=== PATIENT | female | born 1945 | race Caucasian/White ===

== ENCOUNTER → 2023-09-20 | Day surgery (SDC) | payer MEDICARE ==
[~2023-09-20] MED LIST: LIDOCAINE 1% (10MG/ML) FOR IV START INTRADERMA PRN; PROPOFOL 10 MG/ML 20 ML VIAL IV ONE
[2023-09-20] MEDS: LACTATED RINGERS 1,000 ML IV SCH (09:34)
[2023-09-20 09:40] VITALS: TEMP 98.3
--- NOTE | 2023-09-20 10:31 | P.PCN ---
Date of Procedure: 09/20/23 Procedure(s) Performed: BRIEF HISTORY: Patient is a 78-year-old pleasant white female scheduled for an elective colonoscopy as a part of screening for colon cancer. PROCEDURE PERFORMED: Colonoscopy with snare polypectomy. PREOPERATIVE DIAGNOSIS: Screening for colon cancer. IV sedation per Anesthesia. PROCEDURE: After informed consent was obtained, the patient, was brought into the endoscopy unit. IV sedation was administered by Anesthesia under continuous monitoring. Digital rectal examination was normal. Initially the Olympus CF-160 flexible video colonoscope was then inserted in the rectum, gradually advanced into the cecum without any difficulty. Careful examination was performed as the scope was gradually being withdrawn. Ileocecal valve and the appendiceal orifice were visualized and appeared normal. Prep was excellent. Mucosa of the cecum, ascending colon, had melanosis coli noted. In the transverse colon there was a 6 mm polyp that was removed by cold snare polypectomy. Rest of the transverse colon, descending colon, sigmoid colon, and rectum appeared normal. Retroflexion was performed in the rectum and no lesions were seen. The patient tolerated the procedure well. IMPRESSION: 6 mm transverse colon polyp status post cold snare polypectomy Diffuse melanosis coli RECOMMENDATIONS: Findings of this examination were discussed with the patient as well as his family. He was advised to follow-up with the biopsy results. If the biopsy was adenomatous he can have a repeat colonoscopy in 5 years..
[2023-09-20 11:13] VITALS: BP 160/79; PULSE 68; RESP 12
== END ==
LOC: ORWHC2ENDO 09:11
PROVIDERS: ATTEND Internal Medicine Gastroenterology
DX: Z12.11 Encounter for screening for malignant neoplasm of colon (principal); D12.3 Benign neoplasm of transverse colon; I10 Essential (primary) hypertension; E78.5 Hyperlipidemia, unspecified; E03.9 Hypothyroidism, unspecified; Z86.73 Personal history of transient ischemic attack (TIA), and cerebral infarction without residual deficits; Z79.890 Hormone replacement therapy; Z79.899 Other long term (current) drug therapy; Z88.2 Allergy status to sulfonamides
CPT/HCPCS: 88305; 45385; J2704

== ENCOUNTER 2024-09-08 18:55 | Inpatient (IN) | payer MEDICARE ==
--- NOTE | 2024-09-08 19:30 | CT ---
EXAMINATION TYPE: CODE STROKE: CT brain wo contr DATE OF EXAM: 09/08/2024 7:21 PM COMPARISON: None. CLINICAL INDICATION: Female, 79 years old with history of Neuro deficit, acute, stroke suspected, Cod e thrombolytic. LKW 1815. Family called after she started having L sided weakness. Hx of previous CVA , no deficits. TECHNIQUE: Brain: Axial CT images of the brain were obtained with coronal and sagittal reformats created and rev iewed. Contrast used: None. Oral contrast used: None. CT DLP: 1043.6 mGycm, Automated exposure control for dose reduction was used. FINDINGS: Brain: Extra-axial spaces: No abnormal extra-axial fluid collections. Ventricular system: Dilatation in proportion to cerebral atrophy. Cerebral parenchyma: No acute intraparenchymal hemorrhage or mass effect. Calcified extra-axial mass in the right parietal lobe measuring 1.6 x 1.6 x 1.8 cm, thought to most likely reflect a calcified meningioma. Scattered hypoattenuating areas are seen within the white matter. Cerebellum: Unremarkable. Mass effect: No evidence of midline shift. Intracranial vasculature: Atherosclerotic calcifications of the intracranial vessels. Soft tissues: Normal. Calvarium/osseous structures: No depressed skull fracture. Paranasal sinuses and mastoid air cells: Mild scattered paranasal sinus disease. Visualized orbits: Orbital contents are intact. IMPRESSION: 1. No acute intracranial hemorrhage. No evidence of acute mass effect or midline shift. 2. Calcified extra-axial mass in the region of the right parietal lobe measuring 1.8 cm felt to most likely reflect a meningioma. Consider correlation with any prior outside imaging if available. 3. Patchy periventricular and subcortical white matter hypoattenuation likely reflecting chronic penny rovascular ischemic disease. [facility], , 09/08/2024 7:27 PM
[2024-09-08] MEDS: T.ENECTEPLASE 5 MG/ML VIAL IVP STA (19:45)
--- NOTE | 2024-09-08 19:49 | CT ---
EXAMINATION TYPE: CT angio head neck DATE OF EXAM: 09/08/2024 7:34 PM COMPARISON: None. CLINICAL INDICATION: Female, 79 years old with history of Neuro deficit, acute, stroke suspected; PHH , Code thrombolytic. LKW 1815. Family called after she started having L sided weakness. Hx of previou s CVA, no deficits. TECHNIQUE: Axially acquired helical CT angiogram of the head and neck was obtained with contrast. Axi al images are supplemented with 3D reconstructions and MIP images which were post-processed at an in dependent workstation. NASCET criteria used. Contrast used:65 ml mL of Isovue 370 with IV Contrast, Oral contrast used: None. CT DLP: 387.5 mGycm, Automated exposure control for dose reduction was used. FINDINGS: CTA HEAD: No evidence of acute intracranial hemorrhage, mass effect, or midline shift. The ventricles, sulci, a nd cisterns are unremarkable. Vertebral arteries: The vertebral arteries are patent. Vertebral artery dominance: Left Basilar artery: The basilar artery is intact. The basilar artery bifurcation is remarkable. Internal Carotid arteries: The cervical, petrous, cavernous and supraclinoid segments are without edilia w-limiting stenosis. MELVIN: Patent with no evidence of aneurysm. ACOM: Present without evidence of aneurysm. MCA: Patent with no evidence of aneurysm. BACON SKIN LIFTER: Patent with no evidence of aneurysm. PCOM: Hypoplastic bilaterally. Dural sinuses: Patent. CTA NECK: Right Carotid System: The common carotid and external carotid arteries are patent. There is less than 50% stenosis at the c arotid bifurcation secondary to calcified/noncalcified plaque. The rest of the internal carotid arter y is patent. Left Carotid System: The common carotid and external carotid arteries are patent. There is less than 50% stenosis at the c arotid bifurcation secondary to calcified/noncalcified plaque. The rest of the internal carotid arter y is patent. Vertebral arteries are patent without evidence hemodynamically significant stenosis. Limited evaluation of the aortic arch and proximal main thoracic aortic arch branches due to severe s treak artifact from adjacent contrast within the left brachiocephalic vein. Visualized portions appea r grossly patent without flow-limiting stenosis. 3 vessel thoracic aortic arch. Upper thorax: Loculated fluid along the partially visualized right fissure and partially visualized p atchy right lower lobe opacities which could reflect atelectasis and/or pneumonia. IMPRESSION: 1. No evidence of acute dissection or flow limiting stenosis of the cervical internal carotid arteri es and cervical vertebral arteries. 2. No evidence of intracranial high-grade stenosis, occlusion or intracranial aneurysm. [facility], , 09/08/2024 7:46 PM
[2024-09-08] MEDS: PANTOPRAZOLE 40 MG/10 ML VIAL IVP STA (19:51)
--- NOTE | 2024-09-08 20:24 | XR ---
EXAMINATION TYPE: XR chest 2V DATE OF EXAM: 09/08/2024 8:19 PM COMPARISON: Same day CT study. CLINICAL INDICATION: Female, 79 years old with history of altered mental status; [facility] TECHNIQUE: XR chest 2V Frontal and lateral views of the chest. FINDINGS: Cardiac silhouette is within normal limits for size. Subtle nodular opacities in the right middle and right lower lobes, best appreciated on lateral view suspicious for pneumonia. No sizable pleural effusion. No pneumothorax. No acute osseous abnormality. IMPRESSION: Right lower lobe/retrocardiac opacity suspicious for atelectasis and/or pneumonia. [facility], , 09/08/2024 8:22 PM
--- NOTE | 2024-09-08 21:12 | ED ---
Neuro HPI - General Chief Complaint: Neuro Symptoms/Deficit Stated Complaint: CVA Time Seen by Provider: 09/08/24 19:00 Source: patient, EMS Mode of arrival: EMS Limitations: no limitations - History of Present Illness Is the patient presenting with stroke symptoms?: Yes Initial Comments: 79-year-old female with past medical history of CVA who presents to the emergency department reporting strokelike symptoms. Patient states around 615 she went to use the restroom. After she used the restroom she noted that she h ad significant weakness in her left arm. Her left leg is in a knee immobilizer but did feel as if there was some weakness to that left leg which was worsened. She also had left-sided facial droop and slurred speech. No headache. Admits to mild blurred vision. States that she had no previous deficits from her old stroke. She denies any nausea or vomiting. No head injuries. Patient does not take any blood thinners. No other alleviating, precipitating or modifying factors - Related Data Home Medications: Home Medications Medication Instructions Recorded Confirmed Enalapril [Vasotec] 10 mg PO DAILY 09/19/23 09/08/24 Levothyroxine Sodium [Levoxyl] 100 mcg PO DAILY 09/19/23 09/08/24 Multivitamin [Multivitamins Adult 1 tab PO DAILY 09/19/23 09/08/24 Gummies] Rosuvastatin Calcium 40 mg PO HS 09/19/23 09/08/24 Solifenacin Succinate 5 mg PO DAILY 09/19/23 09/08/24 Acetaminophen Tab [Tylenol] 500 mg PO Q6HR PRN 09/08/24 09/08/24 Alendronate Sodium [Fosamax] 70 mg PO SUMMERS 09/08/24 09/08/24 HYDROcodone/APAP 5-325MG [Owanka 1 tab PO Q4-6H PRN 09/08/24 09/08/24 5-325] Previous Rx's Medication Instructions Recorded Aspirin 81 mg PO DAILY tab 09/11/24 Rivaroxaban [Xarelto] 20 mg PO DAILY@1800 #30 tab 09/11/24 Allergies/Adverse Reactions: Allergies Allergy/AdvReac Type Severity Reaction Status Date / Time Sulfa (Sulfonamide Allergy Rash/Hives Verified 09/08/24 21:01 Antibiotics) Review of Systems ROS Statement: Those systems with pertinent positive or pertinent negative responses have been documented in the HPI. ROS Other: All systems not noted in ROS Statement are negative. General Exam Limitations: no limitations General appearance: alert, in no apparent distress Head exam: Present: atraumatic, normocephalic, normal inspection Eye exam: Present: normal appearance, PERRL, EOMI. Absent: scleral icterus, conjunctival injection, periorbital swelling ENT exam: Present: mucous membranes moist, other (Patient has notable droop on the left lower face) Neck exam: Present: normal inspection. Absent: tenderness, meningismus, lymphadenopathy Respiratory exam: Present: normal lung sounds bilaterally. Absent: respiratory distress, wheezes, rales, rhonchi, stridor Cardiovascular Exam: Present: regular rate, normal rhythm, normal heart sounds. Absent: systolic murmur, diastolic murmur, rubs, gallop, clicks GI/Abdominal exam: Present: soft, normal bowel sounds. Absent: distended, tenderness, guarding, rebound, rigid Extremities exam: Present: full ROM, normal capillary refill, other (Slight decrease in junior network administrator strength on the left arm). Absent: tenderness, pedal edema, joint swelling, calf tenderness Back exam: Present: normal inspection Neurological exam: Present: alert, oriented X3, CN II-XII intact Psychiatric exam: Present: normal affect, normal mood Skin exam: Present: warm, dry, intact, normal color. Absent: rash Stroke [facility] - Lab Data Result diagrams: 09/10/24 03:53 09/10/24 03:53 Lab Results 09/08/24 09/08/24 09/08/24 Range/Units 19:11 19:11 19:11 WBC 9.63 (4.50-10.00) 10*3/uL RBC 4.54 (4.10-5.20) 10*6/uL Hgb 13.5 (12.0-15.0) g/dL Hct 40.3 (37.2-46.3) % MCV 88.8 (80.0-97.0) fL MCH 29.7 (27.0-32.0) pg MCHC 33.5 (32.0-37.0) g/dL Plt Count 178 (140-440) 10*3/uL MPV 13.8 H (9.5-12.2) fL Immature Gran % (Auto) 0.3 % Neutrophils % 82.2 % Lymphocytes % 8.9 % Monocytes % 8.2 % Eosinophils % 0.1 % Basophils % 0.3 % Immature Gran # 0.03 (0.00-0.04) 10*3/uL Neutrophils # 7.91 H (1.80-7.70) 10*3/uL Lymphocytes # 0.86 L (0.90-5.00) 10*3/uL Monocytes # 0.79 (0.20-1.00) 10*3/uL Eosinophils # 0.01 L (0.04-0.35) 10*3/uL Basophils # 0.03 (0.00-0.10) 10*3/uL Immature Plt Fraction 10.8 H (1.1-6.1) % PT 10.9 (10.0-12.5) sec INR 1.0 (<1.2) APTT 22.1 (22.0-30.0) sec Sodium 137 (137-145) mmol/L Potassium 4.3 (3.5-5.1) mmol/L Chloride 106 (98-107) mmol/L Carbon Dioxide 21 L (22-30) mmol/L Anion Gap 10 mmol/L BUN 16 (7-17) mg/dL Creatinine 0.65 (0.52-1.04) mg/dL Est GFR (CKD-EPI)AfAm >90 (>60 ml/min/1.73 sqM) Est GFR (CKD-EPI)NonAf 86 (>60 ml/min/1.73 sqM) Glucose 115 H (74-99) mg/dL Calcium 9.2 (8.4-10.2) mg/dL Total Bilirubin 0.7 (0.2-1.3) mg/dL AST 31 (14-36) U/L ALT 31 (4-34) U/L Alkaline Phosphatase 145 H (38-126) U/L Creatine Kinase 121 (30-135) U/L Troponin I (0.000-0.034) ng/mL Total Protein 6.6 (6.3-8.2) g/dL Albumin 3.9 (3.5-5.0) g/dL 09/08/24 Range/Units 19:11 WBC (4.50-10.00) 10*3/uL RBC (4.10-5.20) 10*6/uL Hgb (12.0-15.0) g/dL Hct (37.2-46.3) % MCV (80.0-97.0) fL MCH (27.0-32.0) pg MCHC (32.0-37.0) g/dL Plt Count (140-440) 10*3/uL MPV (9.5-12.2) fL Immature Gran % (Auto) % Neutrophils % % Lymphocytes % % Monocytes % % Eosinophils % % Basophils % % Immature Gran # (0.00-0.04) 10*3/uL Neutrophils # (1.80-7.70) 10*3/uL Lymphocytes # (0.90-5.00) 10*3/uL Monocytes # (0.20-1.00) 10*3/uL Eosinophils # (0.04-0.35) 10*3/uL Basophils # (0.00-0.10) 10*3/uL Immature Plt Fraction (1.1-6.1) % PT (10.0-12.5) sec INR (<1.2) APTT (22.0-30.0) sec Sodium (137-145) mmol/L Potassium (3.5-5.1) mmol/L Chloride (98-107) mmol/L Carbon Dioxide (22-30) mmol/L Anion Gap mmol/L BUN (7-17) mg/dL Creatinine (0.52-1.04) mg/dL Est GFR (CKD-EPI)AfAm (>60 ml/min/1.73 sqM) Est GFR (CKD-EPI)NonAf (>60 ml/min/1.73 sqM) Glucose (74-99) mg/dL Calcium (8.4-10.2) mg/dL Total Bilirubin (0.2-1.3) mg/dL AST (14-36) U/L ALT (4-34) U/L Alkaline Phosphatase (38-126) U/L Creatine Kinase (30-135) U/L Troponin I <0.012 (0.000-0.034) ng/mL Total Protein (6.3-8.2) g/dL Albumin (3.5-5.0) g/dL - Medical Decision Making Was pt. sent in by a medical professional or institution (TORY Baltazar, SENIOR DRUPAL DEVELOPER, urgent care, hospital, or snf...) When possible be specific @ -No Did you speak to anyone other than the patient for history (EMS, parent, family, police, friend...)? What history was obtained from this source @ -Spoke with and EMS for history Did you review nursing and triage notes (agree or disagree)? Why? @ -I reviewed and agree with nursing and triage notes Were old charts reviewed (outside hosp., previous admission, EMS record, old EKG, old radiological studies, urgent care reports/EKG's, snf records)? Report findings @ -No old charts were reviewed Differential Diagnosis (chest pain, altered mental status, abdominal pain women, abdominal pain men, vaginal bleeding, weakness, fever, dyspnea, syncope, headache, dizziness, GI bleed, back pain, seizure, CVA, palpatations, mental h ealth, musculoskeletal)? @ -Differential CVA Ischemic stroke, hemorrhagic stroke, brain tumor, atypical migraine, Wernicke's encephalopathy, seizure, multiple sclerosis, meningitis, encephalitis, hy poglycemia, Guillain-Jiménez, electrolytes disturbance, myasthenia gravis.... This is not meant to be an all-inclusive list EKG interpreted by me (3pts min.). @ -Yes and demonstrates sinus rhythm with a rate of 85. [place] interval 154. QRS 85. QTc of 335. No acute ST segment elevations or depressions X-rays interpreted by me (1pt min.). @ -Yes which demonstrates no acute process CT interpreted by me (1pt min.). @ -Yes and demonstrates no acute process U/S interpreted by me (1pt. min.). @ -None done What testing was considered but not performed or refused? (CT, X-rays, U/S, labs)? Why? @ -None What meds were considered but not given or refused? Why? @ -None Did you discuss the management of the patient with other professionals (professionals i.e. TORY Baltazar, SENIOR DRUPAL DEVELOPER, lab, RT, psych nurse, social media specialist, sizing end bander, teacher, sanitation officer, case liner)? Give summary @ -Spoke with Dr. tillman who recommended TNK Was smoking cessation discussed for >3mins.? @ -No Was critical care preformed (if so, how long)? @ -40 minutes for code stroke activation and administration of TNK Were there social determinants of health that impacted care today? How? (Homelessness, low income, unemployed, alcoholism, drug addiction, transportation, low edu. Level, literacy, decrease access to med. care, long term, rehab)? @ -No Was there de-escalation of care discussed even if they declined (Discuss DNR or withdrawal of care, Hospice)? DNR status @ -No What co-morbidities impacted this encounter? (DM, HTN, Smoking, COPD, CAD, Cancer, CVA, ARF, Chemo, Hep., AIDS, mental health diagnosis, sleep apnea, mor bid obesity)? @ -History of previous CVA Was patient admitted / discharged? Hospital course, mention meds given and route, prescriptions, significant lab abnormalities, going to OR and other pertinent info. @ -Upon arrival patient seen and evaluated in room 1. Thorough history and physical exam was performed. Patient does have symptoms consistent with acute stroke and therefore I did activate a code thrombolytics. Laboratory studies are conducted. Patient does go for CT. I spoke with Dr. Tillman at 192 who recommends that the patient get TNKase for her NIH of 4. I did discuss this w ith the patient. She was agreeable to receiving this medication should her CAT scan come back negative. I did receive the CAT scan read which came back at 1926 and demonstrated no acute intracranial process and therefore the TNK was ordered at 1927. Upon attempting to administer this to the patient she does retract her consent. She states that she would like me to talk to her family about the risks and benefits of this medication. We do await family who do come back from the waiting room. I discussed TNK with them and it was a unanimous agreement between the patient, her , her son and [id number] to receive the TNK. Patient does consent once again to receiving the medication at 1940 and therefore it was administered shortly after. Patient will go to the ICU. She is admitted to Dr. Smith. Dr. Resendiz is made aware does accept the patient into the ICU Undiagnosed new problem with uncertain prognosis? @ -No Drug Therapy requiring intensive monitoring for toxicity (Heparin, Nitro, Insulin, Cardizem)? @ -No Were any procedures done? @ -No Diagnosis/symptom? @ -Acute left facial droop, acute left upper and lower extremity weakness, suspected CVA status post TNKase Acute, or Chronic, or Acute on Chronic? @ -Acute Uncomplicated (without systemic symptoms) or Complicated (systemic symptoms)? @ -Complicated Side effects of treatment? @ -Bleeding including intracranially Exacerbation, Progression, or Severe Exacerbation? @ -No Poses a threat to life or bodily function? How? (Chest pain, USA, CA, pneumonia, PE, COPD, DKA, ARF, appy, cholecystitis, CVA, Diverticulitis, Homicidal, Suicidal, threat to staff... and all critical care pts) @ -Yes if patient does demonstrate signs of a stroke Past Medical History Past Medical History: GERD/Reflux, Hyperlipidemia, Hypertension, Osteoarthritis (OA) Additional Past Medical History / Comment(s): + cologuard. Back pain with 2 slipped discs History of Any Multi-Drug Resistant Organisms: None Reported Past Surgical History: Appendectomy, Breast Surgery, Orthopedic Surgery Additional Past Surgical History / Comment(s): L foot surgery for hammertoe, R foot bursa surgery, D&C, breast biopsies. Past Anesthesia/Blood Transfusion Reactions: No Reported Reaction Past Psychological History: No Psychological Hx Reported Smoking Status: Former smoker - Past Family History Mother Family Medical History: No Reported History Additional Family Medical History / Comment(s): Lived to be 93yrs old. Father Family Medical History: Cancer Additional Family Medical History / Comment(s): Pancreatic cancer. Course Vital Signs 09/08/24 09/08/24 09/08/24 18:57 19:01 23:00 Temperature 98.1 F 98.8 F Pulse Rate 86 84 82 Respiratory 20 18 18 Rate Blood Pressure 163/72 159/75 139/87 O2 Sat by Pulse 93 L 95 Oximetry Disposition Clinical Impression: Cerebrovascular accident (CVA) Disposition: ADMITTED IP TO THIS HOSP Is patient prescribed a controlled substance at d/c from ED?: No Time of Disposition: 21:30 Decision to Admit Reason: Admit from EC Decision Date: 09/08/24 Decision Time: 21:30
[2024-09-08 21:16] LABS: Basophils # (A) 0.03 10*3/uL (0.00-0.10); Basophils % (A) 0.3 %; Eosinophils # (A) 0.01 10*3/uL (0.04-0.35); Eosinophils % (A) 0.1 %; HCT 40.3 % (37.2-46.3); HGB 13.5 g/dL (12.0-15.0); Immature Platelet Fraction 10.8 % (1.1-6.1); Lymphocytes # (A) 0.86 10*3/uL (0.90-5.00); Lymphocytes % (A) 8.9 %; MCH 29.7 pg (27.0-32.0); MCHC 33.5 g/dL (32.0-37.0); MCV 88.8 fL (80.0-97.0); Mean Platelet Volume 13.8 fL (9.5-12.2); Monocytes # (A) 0.79 10*3/uL (0.20-1.00); Monocytes % (A) 8.2 %; Neutrophils # (A) 7.91 10*3/uL (1.80-7.70); Neutrophils % (A) 82.2 %; Platelet Count 178 10*3/uL (140-440); RBC 4.54 10*6/uL (4.10-5.20); WBC 9.63 10*3/uL (4.50-10.00)
[2024-09-08 21:29] LABS: ALT 31 U/L (4-34); AST 31 U/L (14-36); African American GFR (CKD) >90 (>60 ml/min/1.73 sqM); Albumin 3.9 g/dL (3.5-5.0); Alkaline Phosphatase 145 U/L (38-126); Anion Gap 10 mmol/L; Blood Urea Nitrogen 16 mg/dL (7-17); Calcium 9.2 mg/dL (8.4-10.2); Carbon Dioxide 21 mmol/L (22-30); Chloride 106 mmol/L (98-107); Creatine Kinase 121 U/L (30-135); Glucose 115 mg/dL (74-99); Non-African American GFR(CKD) 86 (>60 ml/min/1.73 sqM); Partial Thromboplastin Time 22.1 sec (22.0-30.0); Potassium 4.3 mmol/L (3.5-5.1); Prothrombin Time 10.9 sec (10.0-12.5); Sodium 137 mmol/L (137-145); Total Bilirubin 0.7 mg/dL (0.2-1.3); Total Protein 6.6 g/dL (6.3-8.2)
[2024-09-08] MEDS ORDERED: NALOXONE 0.4 MG/ML 1 ML VIAL IV PRN (21:30)
[2024-09-08 23:31] LABS: Glucose,Whole Blood 113 mg/dL (70-110)
[2024-09-09] MEDS: HYDROcodone/APAP 5-325MG 1 EACH TAB PO PRN (00:17)
--- NOTE | 2024-09-09 01:33 | P.CNPUL ---
History of Present Illness Consult date: 09/09/24 Requesting physician: Ashlyn Cook Reason for consult: other (CVA status post TNK, ICU management) Chief complaint: Left-sided hemiparesis, dysarthria History of present illness: Patient is a 79-year-old female with past medical history significant for previous CVA/TIA, hypertension, hyperlipidemia, recent mechanical fall resulting in left tibial fracture. Brought into the emergency department by EMS with strokelike symptoms last night. Last known well 1814. She was up using the restroom and noted significant left upper and lower extremity weakness. Associated dysarthria. Her immediately called EMS. Code stroke was initiated. NIH was scored at [address] without contrast did not show any acute intracranial hemorrhage or mass effect. There was a calcified extra-axial mass in the region of the right parietal lobe measuring 1.8 cm, felt to most likely representing meningioma. Patchy periventricular and subcortical white matter hypoattenuation likely reflecting chronic microvascular ischemic disease. Brain CT angiogram of the head and neck did not show any evidence of dissection or cervical internal carotid artery stenosis or vertebral artery stenosis. No evidence of high-grade intracranial stenosis, occlusion, or aneurysm. A decision was made between the ER provider and on-call neuro interventionalist to administer tenecteplase. This was given at 1945. Patient is currently being evaluated in the intensive care unit following TNK administr ation. She is awake and alert. Previous deficits have resolved. States she has history of CVA/TIA approximately 25 years ago. She was told she had a blood clot in her heart. Not currently on any anticoagulation. She does take a daily aspirin. Currently, denies any headaches, vision changes. No notable dysphasia or dysarthria. Previous left-sided weakness has resolved, she does have a left lower extremity soft leg brace. Reportedly sustained a left tibial fracture following a mechanical fall approximately 2 weeks ago. Continues to have some left lower extremity pain. Gait assessment was deferred. No ataxia. Denies any head trauma. Denies any chest pain, heart palpitations, syncopal events. CBC: WBC count 9.6, hemoglobin 13.5, platelets 178. Coagulation profile including PT of 10.9, INR 1, APTT 22. CMP with a sodium of 137, potassium 4.3, chloride 106, serum bicarb 21, BUN 16, creatinine 0.65, glucose 115. LFTs not elevated. Troponin less than 0.012. Previous EKG: Sinus rhythm, rate 85 bpm, with nonspecific ST and T wave segment abnormalities. Current most recent vital signs: Temperature 98.9 F, heart rate 78 bpm, blood pressure 145/62 mmHg, nontachypneic, SPO2 recorded at 95% on room air. Review of Systems Constitutional: Denies chills, Denies fatigue, Denies fever, Denies poor appetite, Denies sweats, Denies weight gain, Denies weight loss Ears, nose, mouth and throat: Denies epistaxis, Denies headache, Denies nasal congestion, Denies nasal discharge, Denies post-nasal drip, Denies sinus pain, Denies sinus pressure, Denies sore throat Cardiovascular: Denies chest pain, Denies leg edema, Denies lightheadedness, Denies orthopnea, Denies palpitations, Denies paroxysmal nocturnal dyspnea, Denies shortness of breath, Denies syncope Respiratory: Denies congestion, Denies cough, Denies cough with sputum, Denies dyspnea Gastrointestinal: Denies abdominal pain, Denies constipation, Denies diarrhea, Denies nausea, Denies vomiting Genitourinary: Denies dysuria, Denies hematuria Musculoskeletal: Reports limitation of motion (Immobilizing brace on the left lower extremity) Integumentary: Denies rash, Denies unusual bruising Neurological: Reports change in speech (Resolved), Reports weakness (Previous left-sided hemiparesis has resolved), Denies ataxia, Denies change in mentation, Denies head injury, Denies headaches, Denies numbness, Denies paresthesias, Denies seizures, Denies syncope, Denies tremors, Denies visual changes Psychiatric: Denies anxiety, Denies depression Past Medical History Past Medical History: GERD/Reflux, Hyperlipidemia, Hypertension, Osteoarthritis (OA) Additional Past Medical History / Comment(s): + cologuard. Back pain with 2 slipped discs History of Any Multi-Drug Resistant Organisms: None Reported Past Surgical History: Appendectomy, Breast Surgery, Orthopedic Surgery Additional Past Surgical History / Comment(s): L foot surgery for hammertoe, R foot bursa surgery, D&C, breast biopsies. Past Anesthesia/Blood Transfusion Reactions: No Reported Reaction Past Psychological History: No Psychological Hx Reported Additional Psychological History / Comment(s): Resides with spouse. Uses cane. Smoking Status: Former smoker Past Alcohol Use History: None Reported Additional Past Alcohol Use History / Comment(s): Pt quit smoking 25 yrs ago. Past Drug Use History: None Reported - Past Family History Mother Family Medical History: No Reported History Additional Family Medical History / Comment(s): Lived to be 93yrs old. Father Family Medical History: Cancer Additional Family Medical History / Comment(s): Pancreatic cancer. Medications and Allergies Home Medications Medication Instructions Recorded Confirmed Type Enalapril [Vasotec] 10 mg PO DAILY 09/19/23 09/08/24 History Levothyroxine Sodium [Levoxyl] 100 mcg PO DAILY 09/19/23 09/08/24 History Multivitamin [Multivitamins Adult 1 tab PO DAILY 09/19/23 09/08/24 History Gummies] Rosuvastatin Calcium 40 mg PO HS 09/19/23 09/08/24 History Solifenacin Succinate 5 mg PO DAILY 09/19/23 09/08/24 History Acetaminophen Tab [Tylenol Tab] 500 mg PO Q6HR PRN 09/08/24 09/08/24 History Alendronate Sodium [Fosamax] 70 mg PO SUMMERS 09/08/24 09/08/24 History Aspirin EC [Ecotrin] 325 mg PO QID PRN 09/08/24 09/08/24 History HYDROcodone/APAP 5-325MG [[place] 1 tab PO Q4-6H PRN 09/08/24 09/08/24 History 5-325] Allergies Allergy/AdvReac Type Severity Reaction Status Date / Time Sulfa (Sulfonamide Allergy Rash/Hives Verified 09/08/24 21:01 Antibiotics) Physical Exam Vitals: Vital Signs Temp Pulse Resp BP Pulse Ox 09/09/24 00:00 98.9 F 92 13 120/68 93 L 09/08/24 23:30 14 09/08/24 23:00 98.8 F 82 18 139/87 95 09/08/24 19:01 84 18 159/75 09/08/24 18:57 98.1 F 86 20 163/72 93 L Intake and Output 09/08/24 09/08/24 09/09/24 14:59 22:59 06:59 Output Total 0 Balance 0 Output: Urine 0 Other: # Voids 0 Weight 63.503 kg GENERAL EXAM: Alert, 79-year-old female, comfortable in no apparent distress. HEAD: Normocephalic and atraumatic EYES: Normal reaction of pupils, equal size. No nystagmus. Nonicteric sclera. NOSE: Clear with pink turbinates. THROAT: No erythema or exudates. NECK: No masses, no JVD. CHEST: No chest wall deformity. LUNGS: Equal air entry with no crackles, wheeze, rhonchi or dullness. On room air. No conversational dyspnea or accessory muscle use.. CVS: S1 and S2 normal with no audible murmur, regular rhythm. No extra heart sounds ABDOMEN: No hepatosplenomegaly, active bowel sounds, no guarding or rigidity. SPINE: No scoliosis or deformity SKIN: No rashes CENTRAL NERVOUS SYSTEM: Alert, fully oriented, cranial nerves II through XII intact. No unilateral extremity weakness. Left lower extremity immobilizing brace in place, gait assessment deferred. No limb ataxia noted. EXTREMITIES: There is no peripheral edema, clubbing, or cyanosis. Peripheral pulses are intact. Results - Laboratory Findings CBC and BMP: 09/08/24 19:11 09/08/24 19:11 PT/INR, D-dimer PT 10.9 sec (10.0-12.5) 09/08/24 19:11 INR 1.0 (<1.2) 09/08/24 19:11 Abnormal lab findings: Abnormal Labs 09/08/24 09/08/24 09/08/24 19:11 19:11 23:29 MPV 13.8 H Neutrophils # 7.91 H Lymphocytes # 0.86 L Eosinophils # 0.01 L Immature Plt Fraction 10.8 H Carbon Dioxide 21 L Glucose 115 H POC Glucose (mg/dL) 113 H Alkaline Phosphatase 145 H - Diagnostic Findings Chest x-ray: image reviewed Assessment and Plan Assessment: Acute ischemic CVA, status post TNK, with resolution of previously noted deficit s Left-sided hemiparesis, resolved Dysarthria, resolved Previous history of CVA/TIA Hypertension History of hyperlipidemia History of hypothyroidism History of mechanical fall and tibial fracture Plan: Patient currently being monitored in the intensive care unit following TNK administration at 1945. Initial brain CT without contrast remarkable for calcified extra-axial mass in the region of the right parietal lobe measuring 1.8 cm, felt to most likely representing meningioma. Consider follow-up brain MRI Follow-up 24-hour brain CT ordered Transthoracic echocardiogram ordered Continue neurochecks per protocol Continue high intensity statin Allow for permissive hypertension Monitor for bleeding Swallow screen Consult PT/OT Neurology is consulted Patient will be monitored in the intensive care unit at least 24 hours following TNK administration I have personally seen and examined the patient, performed the documentation and the assessment and plan as written. Number of minutes spent on the visit:20 This dictation was produced using [employer] dictation software please excuse gr ammatical errors Time with Patient: Greater than 30
[2024-09-09] MEDS: LEVOTHYROXINE 100 MCG TAB PO SCH (05:48)
[2024-09-09 08:35] LABS: Chol/HDL Ratio 3.12 Ratio; LDL Cholesterol,Calculated 65.5 mg/dL (0.0-131.0)
[2024-09-09] MEDS: ACETAMINOPHEN TAB 500 MG TAB PO PRN (11:10)
--- NOTE | 2024-09-09 11:48 | CA ---
Transthoracic Echo Report Name: Neela Matthews Age: 79 Gender: F : 1945 Exam Date: 09/09/2024 08:49 Exam Location: [facility] Echo Ht (in): 63 Wt (lb): 140 Ordering Physician: Evan Murdock Attending/Referring Phys: [employer] Operator Manuel Davis RDCS Procedure CPT: Indications: Ischemic CVA Cardiac Hx: Technical Quality: Good Contrast 1: Total Dose (mL): Contrast 2: Total Dose (mL): MEASUREMENTS (Male / Female) Normal Values 2D ECHO LV Diastolic Diameter PLAX 4.3 cm 4.2 - 5.9 / 3.9 - 5.3 cm LV Systolic Diameter PLAX 2.4 cm IVS Diastolic Thickness 0.8 cm 0.6 - 1.0 / 0.6 - 0.9 cm LVPW Diastolic Thickness 0.8 cm 0.6 - 1.0 / 0.6 - 0.9 cm LV Relative Wall Thickness 0.4 LVOT Diameter 1.8 cm LA Systolic Diameter LX 3.1 cm 3.0 - 4.0 / 2.7 - 3.8 cm LV Diastolic Volume MOD BP 80.2 cm??? 67 - 155 / 56 - 104 cm??? LV Systolic Volume MOD BP 26.1 cm??? 22 - 58 / 19 - 49 cm??? LV Ejection Fraction MOD BP 67.5 % >= 55 % LV Diastolic Volume MOD 4C 71.3 cm??? LV Systolic Volume MOD 4C 26.4 cm??? LV Ejection Fraction MOD 4C 63.0 % LV Diastolic Length 4C 6.7 cm LV Systolic Length 4C 5.8 cm LV Diastolic Volume MOD 2C 85.0 cm??? LV Systolic Volume MOD 2C 25.1 cm??? LV Ejection Fraction MOD 2C 70.4 % LV Diastolic Length 2C 7.1 cm LV Systolic Length 2C 5.6 cm LA Volume 52.0 cm??? 18 - 58 / 22 - 52 cm??? LA Volume Index 30.7 cm???/m??? 16 - 28 cm???/m??? DOPPLER MV Area PHT 2.8 cm??? Mitral E Point Velocity 73.1 cm/s Mitral A Point Velocity 105.8 cm/s Mitral E to A Ratio 0.7 MV Deceleration Time 266.8 ms TR Peak Velocity 264.4 cm/s TR Peak Gradient 28.0 mmHg Right Atrial Pressure 5.0 mmHg Pulmonary Artery Systolic Pressu 33.0 mmHg Right Ventricular Systolic Press 33.0 mmHg FINDINGS Left Ventricle Left ventricular ejection fraction is estimated at 60-65%. Normal Left ventricular size, wall thickness, systolic function with no obvious regional wall motion abnormalities. Right Ventricle Normal right ventricular size and function. Right ventricular systolic pressure within normal limits. Right Atrium Normal right atrial size. Positive agitated saline bubble study for right to left shunt. Left Atrium Mildly increased left atrial volume. Mitral Valve Mitral valve thickened. No mitral stenosis. No mitral regurgitation. Aortic Valve Trileaflet aortic valve. Thickened aortic valve without stenosis. No aortic regurgitation. Tricuspid Valve Structurally normal tricuspid valve. No tricuspid stenosis. [id number] tricuspid regurgitation. Pulmonic Valve Structurally normal pulmonic valve. No pulmonic stenosis. Trace pulmonic regurgitation. Pericardium No pericardial effusion. No pleural effusion. Aorta Normal size aortic root and proximal ascending aorta. CONCLUSIONS LVEF 60% No obvious regional wall motion abnormality Mild left atrial dilatation Mild to moderate tricuspid regurgitation, otherwise no significant valve dysfunction there is evidence of [id number] intracardiac shunting on bubble study suggestive of a PFO Previewed by: Dr Keven Pennington (Electronically Signed) Final Date: 09 September 2024 11:47
[2024-09-09] MEDS: lisinopriL 20 MG TAB PO SCH (17:01)
[2024-09-09] MEDS: MULTIVITAMINS, THERA 1 EACH TAB PO SCH (17:01)
--- NOTE | 2024-09-09 17:17 | P.HPIM ---
History of Present Illness H&P Date: 09/09/24 Chief Complaint: Left arm weakness Very pleasant 79-year-old patient, follows with Dr. Zohra Guillory. Chronic medical condition include hyperlipidemia, hypertension, osteoarthritis, chronic back pain with slipped disc. GERD. Patient does use a walker at baseline. 2 weeks ago she took a fall and has a left tibia fracture. Has a brace. Following with the orthopedic in the [place] area. Patient had a CVA, about 25 years ago. Resolved. Around 6:15 PM she went to use the restroom. After that she noted that she had significant weakness of the left arm. Her left leg she is wearing a knee immobilizer because she is on the tibia fracture. She also felt some worsening of weakness in the left leg. Also had some left-sided facial droop and bit of slurred speech. She therefore presented to the ER. At 19: 28 patient was given tenecteplase. Subsequently her symptoms complete resolved. Was admitted to the ICU. This morning her and daughter at the bedside. Feeling well. Eating well. Review of systems: GEN.: A bit tired EYES: None HEENT: None NECK: None RESPIRATORY: None CARDIOVASCULAR: None GASTROINTESTINAL: None GENITOURINARY: None MUSCULOSKELETAL: [Joint pains including left leg brace LYMPHATICS: None HEMATOLOGICAL: None PSYCHIATRY: None NEUROLOGICAL: As above e Social history: Lives with her . Stop smoking about 25 years ago. No alcohol. Physical examination: VITAL SIGNS: 98.3, 95, 18, 163 x 79, 95% room air GENERAL: BMI 26.2, reclining in bed awake comfortable. EYES: Pupils equal. Conjunctiva mariposa l. HEENT: External appearance of nose and ears normal, oral cavity grossly normal. NECK: JVD not raised; masses not palpable. HEART: First and second heart sounds are normal; no edema. LUNGS: Respiratory rate normal; clear to auscultation. ABDOMEN: Soft, nontender, liver spleen not palpable, no masses palpable. PSYCH: Alert and oriented x3; mood and affect mariposa l. MUSCULOSKELETAL:No Clubbing/cyanosis;muscles-grossly intact. OA in many joints. Left leg in a brace NEUROLOGICAL: Cranial nerves grossly intact; no facial asymmetry, power and sensation grossly intact. LYMPHATICS: No lymph nodes palpable in the axilla and neck INVESTIGATIONS, reviewed in the clinical context: September 08, 2024: White count 9.6 hemoglobin 13.5 platelets 178 sodium 137 potassium 4.3 BUN 16 creatinine 0.65 LDL 65.5 EKG tracing personally reviewed by me-sinus rhythm. Nonspecific ST-T wave changes. Chest x-ray film personally reviewed by me-possible right basilar atelectasis CT angio head and neck: Unremarkable Assessment plan: - Acute ischemic stroke causing left-sided weakness and some left facial drooping. Patient received tenecteplase. Symptoms are resolved. Patient be monitored in the ICU for 24 hours. Following that patient be on antiplatelet agents. On Lipitor - Primary osteoarthritis Tylenol as needed - Left tibial fracture secondary to fall about 2 weeks ago. Patient has a brace in place. Being followed by orthopedics in the [place] area - Hypothyroid Levothyroxine 100 mcg a day - Essential hypertension Vasotec 10 mg a day Neurology consulted. Care was discussed with patient and family at the bedside. [facility] - Past Medical History Past Medical History: GERD/Reflux, Hyperlipidemia, Hypertension, Osteoarthritis (OA) Additional Past Medical History / Comment(s): + cologuard. Back pain with 2 slipped discs History of Any Multi-Drug Resistant Organisms: None Reported Past Surgical History: Appendectomy, Breast Surgery, Orthopedic Surgery Additional Past Surgical History / Comment(s): L foot surgery for hammertoe, R foot bursa surgery, D&C, breast biopsies. Past Anesthesia/Blood Transfusion Reactions: No Reported Reaction Past Psychological History: No Psychological Hx Reported Additional Psychological History / Comment(s): Resides with spouse. Uses cane. Smoking Status: Former smoker Past Alcohol Use History: None Reported Additional Past Alcohol Use History / Comment(s): Pt quit smoking 25 yrs ago. Past Drug Use History: None Reported - Past Family History Mother Family Medical History: No Reported History Additional Family Medical History / Comment(s): Lived to be 93yrs old. Father Family Medical History: Cancer Additional Family Medical History / Comment(s): Pancreatic cancer. Medications and Allergies Home Medications Medication Instructions Recorded Confirmed Type Enalapril [Vasotec] 10 mg PO DAILY 09/19/23 09/08/24 History Levothyroxine Sodium [Levoxyl] 100 mcg PO DAILY 09/19/23 09/08/24 History Multivitamin [Multivitamins Adult 1 tab PO DAILY 09/19/23 09/08/24 History Gummies] Rosuvastatin Calcium 40 mg PO HS 09/19/23 09/08/24 History Solifenacin Succinate 5 mg PO DAILY 09/19/23 09/08/24 History Acetaminophen Tab [Tylenol Tab] 500 mg PO Q6HR PRN 09/08/24 09/08/24 History Alendronate Sodium [Fosamax] 70 mg PO SUMMERS 09/08/24 09/08/24 History Aspirin EC [Ecotrin] 325 mg PO QID PRN 09/08/24 09/08/24 History HYDROcodone/APAP 5-325MG [[place] 1 tab PO Q4-6H PRN 09/08/24 09/08/24 History 5-325] Allergies Allergy/AdvReac Type Severity Reaction Status Date / Time Sulfa (Sulfonamide Allergy Rash/Hives Verified 09/08/24 21:01 Antibiotics) Physical Exam Vitals: Vital Signs Temp Pulse Resp BP Pulse Ox 09/09/24 15:00 76 14 150/78 92 L 09/09/24 14:00 81 15 162/81 92 L 09/09/24 13:00 80 27 H 168/76 93 L 09/09/24 12:00 98.7 F 77 10 L 161/63 94 L 09/09/24 11:00 75 28 H 182/68 92 L 09/09/24 10:00 79 19 163/56 94 L 09/09/24 09:00 80 12 156/83 92 L 09/09/24 08:00 98.3 F 95 18 163/79 95 09/09/24 07:00 102 H 22 136/55 97 09/09/24 06:00 76 25 H 157/67 93 L 09/09/24 05:00 86 31 H 137/63 93 L 09/09/24 04:00 98.4 F 68 20 115/57 93 L 09/09/24 03:00 73 23 125/58 96 09/09/24 02:30 72 23 122/55 94 L 09/09/24 02:00 75 23 128/56 94 L 09/09/24 01:30 75 25 H 133/55 95 09/09/24 01:00 78 22 145/62 95 09/09/24 00:30 84 30 H 164/63 94 L 09/09/24 00:13 88 28 H 164/63 95 09/09/24 00:00 98.9 F 92 13 120/68 93 L 09/08/24 23:30 14 09/08/24 23:00 98.8 F 82 18 139/87 95 09/08/24 19:01 84 18 159/75 09/08/24 18:57 98.1 F 86 20 163/72 93 L Intake and Output 09/09/24 09/09/24 09/09/24 06:59 14:59 22:59 Intake Total 500 Output Total 0 150 50 Balance 0 350 -50 Intake: Oral 500 Output: Urine 0 150 50 Other: Voiding Method External Catheter # Voids 1 0 1 Weight 67.1 kg Results CBC & Chem 7: 09/08/24 19:11 09/08/24 19:11 Labs: Abnormal Lab Results - Last 24 Hours (Table) 09/08/24 09/08/24 09/08/24 Range/Units 19:11 19:11 23:29 MPV 13.8 H (9.5-12.2) fL Neutrophils # 7.91 H (1.80-7.70) 10*3/uL Lymphocytes # 0.86 L (0.90-5.00) 10*3/uL Eosinophils # 0.01 L (0.04-0.35) 10*3/uL Immature Plt Fraction 10.8 H (1.1-6.1) % Carbon Dioxide 21 L (22-30) mmol/L Glucose 115 H (74-99) mg/dL POC Glucose (mg/dL) 113 H (70-110) mg/dL Alkaline Phosphatase 145 H (38-126) U/L
--- NOTE | 2024-09-09 20:29 | CT ---
EXAMINATION TYPE: CT brain wo con DATE OF EXAM: 09/09/2024 8:14 PM COMPARISON: 09/08/2024. CLINICAL INDICATION: Female, 79 years old with history of Neuro deficit, acute, stroke suspected, Pos t TPA infusion. TECHNIQUE: Brain: Axial CT images of the brain were obtained with coronal and sagittal reformats created and rev iewed. Contrast used: None. Oral contrast used: None. CT DLP: 1125.4 mGycm, Automated exposure control for dose reduction was used. FINDINGS: Brain: Extra-axial spaces: No abnormal extra-axial fluid collections. Calcified probable meningioma measurin g 17 mm on the right lateral skull. Ventricular system: Dilatation in proportion to cerebral atrophy. Cerebral parenchyma: Cerebral atrophy. No acute intraparenchymal hemorrhage or mass effect. The gracia -white junction is well differentiated. Scattered hypoattenuating areas are seen within the white mat ter. Cerebellum: Unremarkable. Mass effect: No evidence of midline shift. Intracranial vasculature: Atherosclerotic calcifications of the intracranial vessels. Soft tissues: Normal. Calvarium/osseous structures: No depressed skull fracture. Paranasal sinuses and mastoid air cells: Mild scattered paranasal sinus disease. Visualized orbits: Orbital contents are intact. IMPRESSION: No acute intracranial process. No intracranial hemorrhage identified. 2. Nonspecific white matter changes, likely secondary to chronic small vessel ischemic disease. [facility], , 09/09/2024 8:26 PM
[2024-09-09] MEDS: ATORVASTATIN 80 MG TAB PO SCH (22:00)
[2024-09-10 04:31] LABS: Basophils # (A) 0.03 10*3/uL (0.00-0.10); Basophils % (A) 0.4 %; Eosinophils # (A) 0.14 10*3/uL (0.04-0.35); HCT 37.6 % (37.2-46.3); HGB 12.2 g/dL (12.0-15.0); Immature Platelet Fraction 9.5 % (1.1-6.1); Lymphocytes # (A) 1.07 10*3/uL (0.90-5.00); Lymphocytes % (A) 14.9 %; MCH 29.2 pg (27.0-32.0); MCHC 32.4 g/dL (32.0-37.0); Mean Platelet Volume 12.9 fL (9.5-12.2); Monocytes # (A) 0.67 10*3/uL (0.20-1.00); Monocytes % (A) 9.3 %; Neutrophils # (A) 5.23 10*3/uL (1.80-7.70); Platelet Count 170 10*3/uL (140-440); RBC 4.18 10*6/uL (4.10-5.20); RDW 13.2 % (11.5-14.5); WBC 7.17 10*3/uL (4.50-10.00)
[2024-09-10 04:51] LABS: African American GFR (CKD) 69 (>60 ml/min/1.73 sqM); Anion Gap 5 mmol/L; Blood Urea Nitrogen 17 mg/dL (7-17); Calcium 9.5 mg/dL (8.4-10.2); Carbon Dioxide 27 mmol/L (22-30); Chloride 103 mmol/L (98-107); Glucose 108 mg/dL (74-99); Non-African American GFR(CKD) 60 (>60 ml/min/1.73 sqM); Potassium 4.3 mmol/L (3.5-5.1); Sodium 135 mmol/L (137-145)
--- NOTE | 2024-09-10 07:18 | P.CNNES ---
History of Present Illness Consult date: 09/09/24 Requesting physician: Ashlyn Cook Reason for Consult: left sided weakness, cva s/p tnk History of Present Illness: Patient is a 79-year-old left-handed female came to the hospital by ambulance yesterday at 6:55 PM for acute stroke like symptoms. Patient states that she has history of a stroke about 25 years ago with similar symptoms that she has presented yesterday with. Patient had no residual deficits from previous stroke, except for perhaps mild left lower lip drooping. Patient states that yesterday at 6 PM, when she was going to the bathroom, she noticed significant weakness in her left arm. Her left leg is in a knee immobilizer but did feel as if there was some weakness to that leg which was worsened. She also had a left facial droop, and slurred speech. Admits to mild blurred vision but no visual field loss. There was no headache. No nausea or vomiting. She came to the hospital and she got up "great shot". Patient states she fell about 3 weeks ago. She has been using walker for about 2-3 months for balance problem because she has 2 slipped disks and chronic back pain. She was seen by orthopedic spine, who recommended patient to undergo physical therapy trial before considering surgery. She was going to physical therapy, when she caught her foot on the carpet and she went down on the knee and fractured tibia. She was not using her walker at that time. Patient has a left leg brace. No surgery was performed for the fracture. As per EMS flowsheet, when they arrived patient was on the toilet. Per patient, she went to get up and felt really weak. came in and she stated her left arm felt weak and she thought she was having a stroke so he called EMS immediately. The examination was scoring 0 by the paramedics. The handgrip was equal, smile was symmetric and no facial droop. Patient mentioned that she had history of a stroke about 25 years ago and it affected her speech and her ability to swallow and her left side. However those side affect has been recovered. Patient currently has a fractured left tibia and she is being treated for it. Patient's blood glucose was 117. Blood pressure 164/83, pulse rate 104, respiration 18 saturation 89%. Her blood pressure on arrival was 163/72 pulse 86 temperature 98.1. Blood test shows normal CBC, PT PTT, normal CMP. Troponin negative. CT head showed no acute intracranial process. No evidence of acute mass effect or midline shift. Calcified extra-axial mass in the region of the right parietal lobe measuring 1.8 cm, felt to most likely reflect a meningioma. Consider correlation with prior outside imaging if available. Patchy periventricular and subcortical white matter hypoattenuation likely reflecting chronic microvascular ischemic disease. I personally reviewed CT head, agree with the findings. Chest x-ray showed right lower lobe/retrocardiac opacity, suspicious for atelectasis and/or pneumonia. EKG showed sinus rhythm. I could not see documentation in the ER report as to the NIH stroke scale in the ER, but patient stated that she did have some deficits while in the ER. (ED note not completed/signed yet at this time of dictation). Patient received TNK. At present all symptoms have resolved. Home medications include Crestor 40 mg, aspirin 325 mg, Idalou, Fosamax, enal salomón and solifenacin. Patient states she takes a full aspirin only about twice a week. Patient has history of hypertension but no diabetes. Patient denies any tobacco use or alcohol. She smoked 1 pack per day for 10 years, quit 25 years ago. Review of Systems All pertinent positive and negative review of systems mentioned in HPI, otherwise unremarkable. Past Medical History Past Medical History: GERD/Reflux, Hyperlipidemia, Hypertension, Osteoarthritis (OA) Additional Past Medical History / Comment(s): + cologuard. Back pain with 2 slipped discs History of Any Multi-Drug Resistant Organisms: None Reported Past Surgical History: Appendectomy, Breast Surgery, Orthopedic Surgery Additional Past Surgical History / Comment(s): L foot surgery for hammertoe, R foot bursa surgery, D&C, breast biopsies. Past Anesthesia/Blood Transfusion Reactions: No Reported Reaction Past Psychological History: No Psychological Hx Reported Additional Psychological History / Comment(s): Resides with spouse. Uses cane. Smoking Status: Former smoker Past Alcohol Use History: None Reported Additional Past Alcohol Use History / Comment(s): Pt quit smoking 25 yrs ago. Past Drug Use History: None Reported - Past Family History Mother Family Medical History: No Reported History Additional Family Medical History / Comment(s): Lived to be 93yrs old. Father Family Medical History: Cancer Additional Family Medical History / Comment(s): Pancreatic cancer. Medications and Allergies Home Medications Medication Instructions Recorded Confirmed Type Enalapril [Vasotec] 10 mg PO DAILY 09/19/23 09/08/24 History Levothyroxine Sodium [Levoxyl] 100 mcg PO DAILY 09/19/23 09/08/24 History Multivitamin [Multivitamins Adult 1 tab PO DAILY 09/19/23 09/08/24 History Gummies] Rosuvastatin Calcium 40 mg PO HS 09/19/23 09/08/24 History Solifenacin Succinate 5 mg PO DAILY 09/19/23 09/08/24 History Acetaminophen Tab [Tylenol Tab] 500 mg PO Q6HR PRN 09/08/24 09/08/24 History Alendronate Sodium [Fosamax] 70 mg PO SUMMERS 09/08/24 09/08/24 History Aspirin EC [Ecotrin] 325 mg PO QID PRN 09/08/24 09/08/24 History HYDROcodone/APAP 5-325MG [Idalou 1 tab PO Q4-6H PRN 09/08/24 09/08/24 History 5-325] Allergies Allergy/AdvReac Type Severity Reaction Status Date / Time Sulfa (Sulfonamide Allergy Rash/Hives Verified 09/08/24 21:01 Antibiotics) Physical Examination - Vital Signs Vital Signs: Vital Signs Temp Pulse Resp BP Pulse Ox 09/09/24 15:00 76 14 150/78 92 L 09/09/24 14:00 81 15 162/81 92 L 09/09/24 13:00 80 27 H 168/76 93 L 09/09/24 12:00 98.7 F 77 10 L 161/63 94 L 09/09/24 11:00 75 28 H 182/68 92 L 09/09/24 10:00 79 19 163/56 94 L 09/09/24 09:00 80 12 156/83 92 L 09/09/24 08:00 98.3 F 95 18 163/79 95 09/09/24 07:00 102 H 22 136/55 97 09/09/24 06:00 76 25 H 157/67 93 L 09/09/24 05:00 86 31 H 137/63 93 L 09/09/24 04:00 98.4 F 68 20 115/57 93 L 09/09/24 03:00 73 23 125/58 96 09/09/24 02:30 72 23 122/55 94 L 09/09/24 02:00 75 23 128/56 94 L 09/09/24 01:30 75 25 H 133/55 95 09/09/24 01:00 78 22 145/62 95 09/09/24 00:30 84 30 H 164/63 94 L 09/09/24 00:13 88 28 H 164/63 95 09/09/24 00:00 98.9 F 92 13 120/68 93 L 09/08/24 23:30 14 09/08/24 23:00 98.8 F 82 18 139/87 95 09/08/24 19:01 84 18 159/75 09/08/24 18:57 98.1 F 86 20 163/72 93 L Intake and Output 09/09/24 09/09/24 09/09/24 06:59 14:59 22:59 Intake Total 500 Output Total 0 150 50 Balance 0 350 -50 Intake: Oral 500 Output: Urine 0 150 50 Other: Voiding Method External Catheter # Voids 1 0 1 Weight 67.1 kg Patient is an elderly female, very pleasant, in no acute distress. Patient is alert awake oriented to time place and person. Speech and language functions are normal. Patient can name and repeat very well. No aphasia or dysarthria. Attention, concentration and fund of knowledge is adequate. On cranial nerve examination, pupils are equal, round and reacting to light, visual perla are full on confrontation, with no neglect on double simultaneous stimulation. Extraocular muscles are intact with no nystagmus. Patient has a slight left lower lip droopiness, but that is chronic since her previous stroke. Otherwise face is symmetric, tongue protrudes to the midline. Palatal elevation and sensation normal, hearing and shoulder shrug normal, facial sensation normal. On muscle strength testing, there is no pronator drift and the strength is normal in arms and legs distally and proximally. Deep tendon reflexes are (right/left) biceps 2+/3+, brachioradialis 2+/C plus, knees 2+ on the right, could not check on the left because of knee immobilizer. Plantars are downgoing. Sensory to touch is equal with no neglect on double simultaneous stimulation. Cerebellar function showed no ataxia for [id number] testing. No dysdiadoch okinesia. No ataxia for [id number] testing on the right side, cannot check with the left leg Tone and bulk of muscles normal. Gait deferred.. On general examination, there is no carotid bruit or murmur, S1-S2 audible. Chest is clear on consultation. Abdomen is soft nontender. No organomegaly, bowel sounds present. Peripheral pulses are present. No peripheral edema. Results - Laboratory Findings CBC and BMP: 09/10/24 03:53 09/10/24 03:53 Abnormal Lab Findings: Abnormal Labs 09/08/24 09/08/24 09/08/24 19:11 19:11 23:29 MPV 13.8 H Neutrophils # 7.91 H Lymphocytes # 0.86 L Eosinophils # 0.01 L Immature Plt Fraction 10.8 H Carbon Dioxide 21 L Glucose 115 H POC Glucose (mg/dL) 113 H Alkaline Phosphatase 145 H Assessment and Plan Assessment: * Possible stroke/TIA, manifesting with left-sided deficits, slurred speech, that seems to have resolved. Patient is status post TNK. Her current NIH stroke scale is 0. * Hypertension * Hyperlipidemia * Previous history of CVA, with no residual deficits. * PFO noted on 2-D echo. * X tobacco use Plan: * MRI of the brain without contrast, evaluate for acute CVA * 2-D echo revealed LV EF 60%. No obvious regional wall motion abnormalities. Positive agitated saline bubble study for [id number] shunt. Mildly increased left atrial volume. Mild to moderate TR. * CTA head and neck showed: No evidence of acute dissection or flow-limiting stenosis of the cervical internal carotid arteries and cervical vertebral arteries. No evidence of intracranial high-grade stenosis, occlusion or intracranial or aneurysm. * Fasting a.m. lipid panel cholesterol 132, LDL 65, HDL 42, triglycerides 121. Continue Crestor 40 mg daily (home dose) * Hemoglobin A1c * Permissive hypertension for next 24-48 hours * Patient used to take aspirin 325 mg tablet, twice a week, prior to arrival. No antiplatelet or anticoagulant for 24 hour post-TNK. * Patient to undergo 24 hours post-TNK CT head. If negative for bleed, will be started on aspirin and Plavix. * Neuro checks as per protocol. * Telemetry monitoring rule out any arrhythmia * PT, OT, speech therapy * DVT prophylaxis: Lovenox 40 mg subcu daily to be started from the morning. * Neurology will continue to follow. Thank you for the consult. Time with Patient: Greater than 30
[2024-09-10] MEDS: CLOPIDOGREL 75 MG TAB PO SCH (08:09)
[2024-09-10] MEDS: ENOXAPARIN 40 MG/0.4 ML SYRINGE SQ SCH (08:09)
[2024-09-10] MEDS: ASPIRIN 81 MG PO STA ×2 (08:17)
--- NOTE | 2024-09-10 09:53 | P.PN ---
Subjective Progress Note Date: 09/10/24 Principal diagnosis: Stroke. Patient is a 79-year-old female with past medical history significant for previous CVA/TIA, hypertension, hyperlipidemia, recent mechanical fall resulting in left tibial fracture. Brought into the emergency department by EMS with strokelike symptoms last night. Last known well 1814. She was up using the restroom and noted significant left upper and lower extremity weakness. Associated dysarthria. Her immediately called EMS. Code stroke was initiated. NIH was scored at [address] without contrast did not show any acute intracranial hemorrhage or mass effect. There was a calcified extra-axial mass in the region of the right parietal lobe measuring 1.8 cm, felt to most likely representing meningioma. Patchy periventricular and subcortical white matter hypoattenuation likely reflecting chronic microvascular ischemic disease. Brain CT angiogram of the head and neck did not show any evidence of dissection or cervical internal carotid artery stenosis or vertebral artery stenosis. No evidence of high-grade intracranial stenosis, occlusion, or aneurysm. A decision was made between the ER provider and on-call neuro interventionalist to administer tenecteplase. This was given at 1945. Patient is currently being evaluated in the intensive care unit following TNK administration. She is awake and alert. Previous deficits have resolved. States she has history of CVA/TIA approximately 25 years ago. She was told she had a blood clot in her heart. Not currently on any anticoagulation. She does take a daily aspirin. Currently, denies any headaches, vision changes. No notable dysphasia or dysarthria. Previous left-sided weakness has resolved, she does have a left lower extremity soft leg brace. Reportedly sustained a left tibial fracture following a mechanical fall approximately 2 weeks ago. C ontinues to have some left lower extremity pain. Gait assessment was deferred. No ataxia. Denies any head trauma. Denies any chest pain, heart palpitations, syncopal events. CBC: WBC count 9.6, hemoglobin 13.5, platelets 178. Coagulation profile including PT of 10.9, INR 1, APTT 22. CMP with a sodium of 137, potassium 4.3, chloride 106, serum bicarb 21, BUN 16, creatinine 0.65, glucose 115. LFTs not elevated. Troponin less than 0.012. Previous EKG: Sinus rhythm, rate 85 bpm, with nonspecific ST and T wave segment abnormalities. Current most recent vital signs: Temperature 98.9 F, heart rate 78 bpm, blood pressure 145/62 mmHg, nontachypneic, SPO2 recorded at 95% on room air. Progress note dated September 10, 2024. The patient is seen today in room 259. She was seen in consultation yesterday. She came to the emergency department, with weakness and facial droop. CT scanning of the brain, did not show hemorrhage. Likewise, the angiography CT, was negative. The patient received TNK. Currently, the patient is doing well in the intensive care unit. She is on room air. No IV fluids. She could be transferred to the 3 S. floor. Current laboratory data is include a white count of 7.2, hemoglobin 12.2, hematocrit 37.6, and platelet count 170,000. Sodium 135, potassium 4.3, chlorides 103, CO2 27, BUN 17, creatinine 0.92. Glucose is 108. Calcium 9.5. Repeat brain CT from yesterday, shows no acute intracranial process, and no evidence of hemorrhage. Objective - Vital Signs Vital signs: Vital Signs Temp 98.2 F 09/10/24 08:00 Pulse 80 09/10/24 08:00 Resp 17 09/10/24 08:00 BP 119/81 09/10/24 08:00 Pulse Ox 95 09/10/24 08:00 FiO2 Intake & Output 09/09/24 09/10/24 09/10/24 18:59 06:59 18:59 Intake Total 500 200 Output Total 250 153 4 Balance 250 -153 196 Weight 67.2 kg Intake: Oral 500 200 Output: Urine 250 150 0 Stool 3 4 Other: Voiding Method External Catheter External Catheter External Catheter # Voids 0 0 0 # Bowel Movements 1 - Exam No acute distress, oriented 3. HEENT examination is grossly unremarkable. Mucous membranes are moist. No oral lesions. Neck supple. Full range of motion. No adenopathy thyromegaly or neck vein distention. Cardiovascular examination reveals regular rhythm rate. S1-S2 normal. No S3 or S4. No discernible murmur noted. Lungs reveal clear breath sounds. Breath sounds are equal bilaterally. No adventitious lung sounds including wheezes rhonchi or crackles. Abdomen soft bowel sounds are heard. No masses or tenderness. Extremities are intact. No cyanosis clubbing or edema. Skin is without rash or lesion. Neurologic examination is brief but nonfocal. All neurologic deficits have resolved - Labs CBC & Chem 7: 09/10/24 03:53 09/10/24 03:53 Labs: Abnormal Lab Results - Last 24 Hours (Table) 09/10/24 09/10/24 Range/Units 03:53 03:53 MPV 12.9 H (9.5-12.2) fL Immature Plt Fraction 9.5 H (1.1-6.1) % Sodium 135 L (137-145) mmol/L Glucose 108 H (74-99) mg/dL Assessment and Plan Assessment: Acute ischemic CVA, status post TNK, with resolution of previously noted deficits. Left-sided hemiparesis, resolved. Dysarthria, resolved. Previous history of CVA/TIA. Hypertension. History of hyperlipidemia. History of hypothyroidism. History of mechanical fall and tibial fracture. Plan: Plan dated September 10, 2024. The patient is being seen today in the intensive care unit, room 259. All of her neurologic deficits have resolved. Clinically, the patient is doing well. She has no specific complaints. The patient is on room air. She is not receiving any IV fluids. The patient is a candidate to be transferred out to the stepdown unit. The repeat CT scan done yesterday, shows no acute abnormalities, and certainly no hemorrhage. We will continue to follow. Prognosis is guarded. Dictation was produced using [employer] software. Please excuse any grammatical, word or spelling errors. Time with Patient: Less than 30
--- NOTE | 2024-09-10 14:10 | P.CRDCN ---
History of Present Illness History of present illness: HISTORY OF PRESENTING ILLNESS This is a pleasant 79-year-old with past medical history significant for CVA/TIA, hypertension, hyperlipidemia, recent tibial fracture who presents secondary to strokelike symptoms. Patient was using the restroom and then noted left upper and lower extremity weakness with some dysarthria. Patient came to hospital and NIH score of [address] showing no acute hemorrhage and therefore was given tPA. Patient was transferred to ICU for further monitoring. She does have a history of a stroke/TIA approximately 25 years ago. CTA head and neck showed no high-grade stenosis. She had a mechanical fall approximately 2 weeks ago and had a tibial fracture. Blood work shows white blood cell count 9.6, hemoglobin 13.5, platelets 178. Creatinine 0.6. Troponin less than 0.012. Echocardiogram performed which shows mild to moderate tricuspid regurgitation with positive bubble study. EKG shows sinus rhythm with nonspecific minimal T wave inversions ST depressions in the inferior leads. REVIEW OF SYSTEMS At the time of my exam: CONSTITUTIONAL: Denies fever or chills. CARDIOVASCULAR: Denies chest pain, shortness of breath, orthopnea, PND or palpit ations. RESPIRATORY: Denies cough. GASTROINTESTINAL: Denies abdominal pain, diarrhea, constipation, nausea or vomiting. MUSCULOSKELETAL: Denies myalgias. NEUROLOGIC: Denies numbness, tingling +left weakness. ENDOCRINE: Denies fatigue, weight change, polydipsia or polyurina. GENITOURINARY: Denies burning, hematuria or urgency with micturation. HEMATOLOGIC: Denies history of anemia or bleeding. PHYSICAL EXAMINATION Vital signs reviewed. CONSTITUTIONAL: No apparent distress. HEENT: Head is normocephalic. Pupils are equal, round. Sclerae anicteric. Mucous membranes of the mouth are moist. No JVD. No carotid bruit. CHEST EXAMINATION: Lungs are clear to auscultation. No chest wall tenderness is noted on palpation or with deep breathing. HEART EXAMINATION: Regular rate and rhythm. S1, S2 heard. No murmurs, gallops or rub. ABDOMEN: Soft, nontender. Positive bowel sounds. EXTREMITIES: 2+ peripheral pulses, no lower extremity edema and no calf tenderness. NEUROLOGIC EXAMINATION: Patient is awake, alert and oriented x3. ASSESSMENT CVA status post TNK History of prior CVA/TIA approximately 25 years ago Hypertension PFO by transthoracic echo Hyperlipidemia Mild to moderate tricuspid regurgitation PLAN Await MRI. Patient without any other source of stroke and also has history of stroke approximately 25 years ago which at the age of 54 would make cause of stroke most likely PFO. Keep patient n.p.o. for possible MARIE. If no other identifiable cause of stroke we will consider closure of PFO. Past Medical History Past Medical History: GERD/Reflux, Hyperlipidemia, Hypertension, Osteoarthritis (OA) Additional Past Medical History / Comment(s): + cologuard. Back pain with 2 slipped discs History of Any Multi-Drug Resistant Organisms: None Reported Past Surgical History: Appendectomy, Breast Surgery, Orthopedic Surgery Additional Past Surgical History / Comment(s): L foot surgery for hammertoe, R foot bursa surgery, D&C, breast biopsies. Past Anesthesia/Blood Transfusion Reactions: No Reported Reaction Past Psychological History: No Psychological Hx Reported Additional Psychological History / Comment(s): Resides with spouse. Uses cane. Smoking Status: Former smoker Past Alcohol Use History: None Reported Additional Past Alcohol Use History / Comment(s): Pt quit smoking 25 yrs ago. Past Drug Use History: None Reported - Past Family History Mother Family Medical History: No Reported History Additional Family Medical History / Comment(s): Lived to be 93yrs old. Father Family Medical History: Cancer Additional Family Medical History / Comment(s): Pancreatic cancer. Medications and Allergies Home Medications Medication Instructions Recorded Confirmed Type Enalapril [Vasotec] 10 mg PO DAILY 09/19/23 09/08/24 History Levothyroxine Sodium [Levoxyl] 100 mcg PO DAILY 09/19/23 09/08/24 History Multivitamin [Multivitamins Adult 1 tab PO DAILY 09/19/23 09/08/24 History Gummies] Rosuvastatin Calcium 40 mg PO HS 09/19/23 09/08/24 History Solifenacin Succinate 5 mg PO DAILY 09/19/23 09/08/24 History Acetaminophen Tab [Tylenol Tab] 500 mg PO Q6HR PRN 09/08/24 09/08/24 History Alendronate Sodium [Fosamax] 70 mg PO SUMMERS 09/08/24 09/08/24 History Aspirin EC [Ecotrin] 325 mg PO QID PRN 09/08/24 09/08/24 History HYDROcodone/APAP 5-325MG [[place] 1 tab PO Q4-6H PRN 09/08/24 09/08/24 History 5-325] Allergies Allergy/AdvReac Type Severity Reaction Status Date / Time Sulfa (Sulfonamide Allergy Rash/Hives Verified 09/08/24 21:01 Antibiotics) Physical Exam Vitals: Vital Signs Temp Pulse Resp BP Pulse Ox 09/10/24 13:51 27 H 09/10/24 12:00 98.2 F 81 27 H 126/70 93 L 09/10/24 08:00 98.2 F 80 17 119/81 95 09/10/24 07:00 73 28 H 153/73 91 L 09/10/24 06:00 73 30 H 94/48 94 L 09/10/24 05:00 64 22 116/56 91 L 09/10/24 04:00 98.0 F 67 24 128/62 91 L 09/10/24 03:00 70 23 105/51 91 L 09/10/24 02:00 65 26 H 106/53 92 L 09/10/24 01:00 67 23 95/48 92 L 09/10/24 00:00 71 22 99/47 91 L 09/09/24 23:00 71 23 112/70 90 L 09/09/24 22:00 74 22 131/60 91 L 09/09/24 21:00 75 25 H 136/59 91 L 09/09/24 20:00 98.4 F 72 24 139/64 92 L 09/09/24 19:06 81 22 139/64 91 L 09/09/24 19:00 85 26 H 122/57 93 L 09/09/24 18:00 80 13 162/70 93 L 09/09/24 17:00 82 14 136/55 95 09/09/24 16:00 98.8 F 75 23 144/74 93 L 09/09/24 15:00 76 14 150/78 92 L Intake and Output 09/09/24 09/10/24 09/10/24 22:59 06:59 14:59 Intake Total 550 Output Total 100 153 504 Balance -100 -153 46 Intake: Oral 550 Output: Urine 100 150 500 Stool 3 4 Other: Voiding Method External Catheter External Catheter External Catheter # Voids 0 0 0 # Bowel Movements 1 Weight 67.2 kg Results 09/10/24 03:53 09/10/24 03:53 CBC 09/10/24 Range/Units 03:53 WBC 7.17 (4.50-10.00) 10*3/uL RBC 4.18 (4.10-5.20) 10*6/uL Hgb 12.2 (12.0-15.0) g/dL Hct 37.6 (37.2-46.3) % Plt Count 170 (140-440) 10*3/uL Comprehensive Metabolic Panel 09/10/24 Range/Units 03:53 Sodium 135 L (137-145) mmol/L Potassium 4.3 (3.5-5.1) mmol/L Chloride 103 (98-107) mmol/L Carbon Dioxide 27 (22-30) mmol/L BUN 17 (7-17) mg/dL Creatinine 0.92 (0.52-1.04) mg/dL Glucose 108 H (74-99) mg/dL Calcium 9.5 (8.4-10.2) mg/dL Current Medications Generic Name Dose Route Start Last Admin Trade Name Freq PRN Reason Stop Dose Admin Acetaminophen 500 mg 09/08/24 23:58 09/10/24 08:09 Acetaminophen Tab 500 Mg Tab PO 500 mg Q6HR PRN Administration Pain Hydrocodone Bitart/Acetaminophen 1 each 09/08/24 23:58 09/09/24 00:17 Hydrocodone/Apap 5-325mg 1 Each Tab PO 1 each Q4H PRN Administration Pain Atorvastatin Calcium 80 mg 09/09/24 21:00 09/09/24 22:00 Atorvastatin 80 Mg Tab PO 80 mg HS YO Administration Clopidogrel Bisulfate 75 mg 09/10/24 09:00 09/10/24 08:09 Clopidogrel 75 Mg Tab PO 75 mg DAILY YO Administration Enoxaparin Sodium 40 mg 09/10/24 09:00 09/10/24 08:09 Enoxaparin 40 Mg/0.4 Ml Syringe SQ 40 mg DAILY YO Administration Levothyroxine Sodium 100 mcg 09/09/24 06:00 09/10/24 06:15 Levothyroxine 100 Mcg Tab PO 100 mcg DAILY@0600 YO Administration Lisinopril 20 mg 09/09/24 16:00 09/10/24 08:09 Lisinopril 20 Mg Tab PO 20 mg DAILY YO Administration Multivitamins 1 each 09/09/24 16:00 09/10/24 08:09 Multivitamins, Thera 1 Each Tab PO 1 each DAILY YO Administration Naloxone HCl 0.2 mg 09/08/24 21:30 Naloxone 0.4 Mg/Ml 1 Ml Vial IV Q2M PRN Opioid Reversal Intake and Output 09/09/24 09/10/24 09/10/24 22:59 06:59 14:59 Intake Total 550 Output Total 100 153 504 Balance -100 -153 46 Intake: Oral 550 Output: Urine 100 150 500 Stool 3 4 Other: Voiding Method External Catheter External Catheter External Catheter # Voids 0 0 0 # Bowel Movements 1 Weight 67.2 kg 09/10/24 03:53 09/10/24 03:53
--- NOTE | 2024-09-10 14:48 | MR ---
INDICATION: Patient age:Female; 79 years old; Reason for study: Stroke/TIA; PHH. Neural deficit. COMPARISON: CT brain 09/09/2024, 09/08/2024, CTA head and neck 09/08/2024. TECHNIQUE: Multi planar, multi sequence imaging was performed through the brain without the administr ation of intravenous contrast. FINDINGS: The ventricular system and basal cisterns appear unremarkable. Mild age-appropriate cerebral volume l oss. There are approximately 6 foci of restricted diffusion within the right frontal and parietal lob es at the gracia-white junction interface. Consistent with acute/subacute ischemia. There is associated T2/FLAIR hyperintensity within these regions. Remote ischemia with encephalomalacia and FLAIR hyperi ntense gliosis within the right frontal and parietal lobes with prominence of the peripheral sulci. Extra-axial right parietal lesion measuring up to 1.7 cm with corresponding blooming artifact on susc eptibility weighted imaging. Consistent with calcification and favored to represent a calcified menin gioma. No significant mass effect. There is an adjacent focus of blooming artifact on susceptibility weighted imaging within the right parietal lobe likely representing prior hemosiderin deposition. Patchy foci of T2/FLAIR hyperintensity within the supratentorial periventricular and subcortical whit e matter. Intracranial arterial flow voids are maintained. Midline structures show no abnormality. The bone marrow signal is within normal limits. The paranasal sinuses and globes are unremarkable. IMPRESSION: 1. Acute/subacute ischemia with few foci of restricted diffusion within the right frontal and parieta l lobe gracia-white junction interface. 2. Small regions of encephalomalacia with gliosis within the right frontal and parietal lobes from pr ior ischemic injury. 3. Nonspecific mild white matter changes, likely related to small vessel ischemic disease. 4. Right parietal extra-axial calcified lesion corresponding to prior CT. Favored to represent a calc ified meningioma. No significant mass effect. A Red level critical message alert has been initiated for Heriberto Smith MD via the [employer] Critical Results System on 09/10/2024 2:45 PM. This message alert has been sent to Heriberto Smith MD via the preferences provided by the clinician for the receipt of Radiology Critical Findings. Message ID [id number]. [facility], , 09/10/2024 2:45 PM
[2024-09-10] MEDS ORDERED: MIDAZOLAM 2 MG/2 ML VIAL IV PRN (15:10)
--- NOTE | 2024-09-10 16:06 | US ---
EXAMINATION TYPE: US venous doppler duplex LE DATE OF EXAM: 09/10/2024 3:48 PM COMPARISON: NONE CLINICAL INDICATION: Female, 79 years old with history of re: r/o DVT; Left femur fracture 3 weeks ag o. R/O DVT TECHNIQUE: The lower extremity deep venous system is examined utilizing real time linear array sonog tiffany with graded compression, color doppler sonography, and spectral doppler. SIDE PERFORMED: Bilateral FINDINGS: VESSELS IMAGED: Common Femoral Vein Deep Femoral Vein Greater Saphenous Vein * Femoral Vein Popliteal Vein Small Saphenous Vein * Proximal Calf Veins (* superficial vessels) Right Leg: No evidence of DVT, Color Doppler imaging shows patency of the vessels. Spectral waveform s are within normal limits. Unable to visualize PTVs or peroneal veins. Incidental finding- prominent shadowing plaque seen right leg arteries Left Leg: No evidence of DVT, Color Doppler imaging shows patency of the vessels. Spectral waveforms are within normal limits. Unable to visualize peroneal veins. IMPRESSION: No visualized deep venous thrombosis of the bilateral lower extremities. Unable to visualize the bila teral peroneal veins and the right lower extremity posterior tibial veins. [facility], , 09/10/2024 4:03 PM
--- NOTE | 2024-09-10 16:10 | P.PN ---
Progress Note - Text Progress Note Date: 09/10/24 Chief Complaint: Left arm weakness Very pleasant 79-year-old patient, follows with Dr. Zohra Guillory. Chronic medical condition include hyperlipidemia, hypertension, osteoarthritis, chronic back pain with slipped disc. GERD. Patient does use a walker at baseline. 2 weeks ago she took a fall and has a left tibia fracture. Has a brace. Following with the orthopedic in the [place] area. Patient had a CVA, about 25 years ago. Resolved. Around 6:15 PM she went to use the restroom. After that she noted that she had significant weakness of the left arm. Her left leg she is wearing a knee immobilizer because she is on the tibia fracture. She also felt some worsening of weakness in the left leg. Also had some left-sided facial droop and bit of slurred speech. She therefore presented to the ER. At 19: 28 patient was given tenecteplase. Subsequently her symptoms complete resolved. Was admitted to the ICU. This morning her and daughter at the bedside. Feeling well. Eating well. September 10: Doing well. No residual. Patient is nonweightbearing on the left leg. Does use a walker. MRI of the brain: Acute/subacute ischemia with few foci of restricted diffusion within the right frontal and parietal lobe gracia- white junction interface. Also evidence of prior ischemic injury with encephalomalacia. Also calcified meningioma.. Communicated with Dr. Arellano. Cardiology will proceed for a MARIE tomorrow. Active Medications Acetaminophen (Acetaminophen Tab 500 Mg Tab) 500 mg PO Q6HR PRN PRN Reason: Pain Last Admin: 09/10/24 08:09 Dose: 500 mg Hydrocodone Bitart/Acetaminophen (Hydrocodone/Apap 5-325mg 1 Each Tab) 1 each PO Q4H PRN PRN Reason: Pain Last Admin: 09/09/24 00:17 Dose: 1 each Atorvastatin Calcium (Atorvastatin 80 Mg Tab) 80 mg PO HS YO Last Admin: 09/09/24 22:00 Dose: 80 mg Benzocaine (Benzocaine [place] 1 Each) 1 each MM TID YO Clopidogrel Bisulfate (Clopidogrel 75 Mg Tab) 75 mg PO DAILY YO Last Admin: 09/10/24 08:09 Dose: 75 mg Enoxaparin Sodium (Enoxaparin 40 Mg/0.4 Ml Syringe) 40 mg SQ DAILY YO Last Admin: 09/10/24 08:09 Dose: 40 mg Fentanyl Citrate (Fentanyl (Pf) 50 Mcg/Ml 5 Ml Amp) 50 mcg IVP ONCE PRN PRN Reason: Pre-Op Stop: 09/11/24 09:10 Levothyroxine Sodium (Levothyroxine 100 Mcg Tab) 100 mcg PO DAILY@0600 [facility] Last Admin: 09/10/24 06:15 Dose: 100 mcg Lisinopril (Lisinopril 20 Mg Tab) 20 mg PO DAILY [facility] Last Admin: 09/10/24 08:09 Dose: 20 mg Midazolam HCl (Midazolam 2 Mg/2 Ml Vial) 1 mg IV ONCE PRN PRN Reason: Pre-Op Stop: 09/11/24 09:10 Multivitamins (Multivitamins, Thera 1 Each Tab) 1 each PO DAILY [facility] Last Admin: 09/10/24 08:09 Dose: 1 each Naloxone HCl (Naloxone 0.4 Mg/Ml 1 Ml Vial) 0.2 mg IV Q2M PRN PRN Reason: Opioid Reversal Social history: Lives with her . Stop smoking about 25 years ago. No alcohol. Physical examination: VITAL SIGNS: 98.2, 81, 16, 126 x 70, 93% room air GENERAL: BMI 26.2, reclining in bed awake comfortable. EYES: Pupils equal. Conjunctiva mariposa l. HEENT: External appearance of nose and ears normal, oral cavity grossly normal. NECK: JVD not raised; masses not palpable. HEART: First and second heart sounds are normal; no edema. LUNGS: Respiratory rate normal; clear to auscultation. ABDOMEN: Soft, nontender, liver spleen not palpable, no masses palpable. PSYCH: Alert and oriented x3; mood and affect mariposa l. MUSCULOSKELETAL:No Clubbing/cyanosis;muscles-grossly intact. OA in many joints. Left leg in a brace NEUROLOGICAL: Cranial nerves grossly intact; no facial asymmetry, power and sensation grossly intact. INVESTIGATIONS, reviewed in the clinical context: MRI brain:Acute/subacute ischemia with few foci of restricted diffusion within the right frontal and parietal lobe gracia-white junction interface. Also evidence of prior ischemic injury with encephalomalacia. Also calcified meningioma.. September 08, 2024: White count 9.6 hemoglobin 13.5 platelets 178 sodium 137 potassium 4.3 BUN 16 creatinine 0.65 LDL 65.5 EKG tracing personally reviewed by me-sinus rhythm. Nonspecific ST-T wave changes. Chest x-ray film personally reviewed by me-possible right basilar atelectasis CT angio head and neck: Unremarkable Assessment plan: - Acute ischemic stroke causing left-sided weakness and some left facial drooping. Patient received tenecteplase. Symptoms are resolved.: Possible embolic MRI brain:Acute/subacute ischemia with few foci of restricted diffusion within the right frontal and parietal lobe gracia-white junction interface. Also evidence of prior ischemic injury with encephalomalacia. Also calcified meningioma.. Plavix on Lipitor MARIE tomorrow to rule out embolic source - Primary osteoarthritis Tylenol as needed - Left tibial fracture secondary to fall about 2 weeks ago. Patient has a brace in place. Being followed by orthopedics in the [place] area - Hypothyroid Levothyroxine 100 mcg a day - Essential hypertension Vasotec 10 mg a day For MARIE tomorrow. - Past Medical History Past Medical History: GERD/Reflux, Hyperlipidemia, Hypertension, Osteoarthritis (OA) Additional Past Medical History / Comment(s): + cologuard. Back pain with 2 slipped discs History of Any Multi-Drug Resistant Organisms: None Reported Past Surgical History: Appendectomy, Breast Surgery, Orthopedic Surgery Additional Past Surgical History / Comment(s): L foot surgery for hammertoe, R foot bursa surgery, D&C, breast biopsies. Past Anesthesia/Blood Transfusion Reactions: No Reported Reaction Past Psychological History: No Psychological Hx Reported Additional Psychological History / Comment(s): Resides with spouse. Uses cane. Smoking Status: Former smoker Past Alcohol Use History: None Reported Additional Past Alcohol Use History / Comment(s): Pt quit smoking 25 yrs ago. Past Drug Use History: None Reported
[2024-09-10] MEDS: BENZOCAINE SPRAY 1 EACH MM SCH (18:13)
[2024-09-11 04:41] VITALS: TEMP 98.2
[2024-09-11] MEDS: SODIUM CHLORIDE 0.9% 1,000 ML IV ONE (07:28)
[2024-09-11] MEDS: MIDAZOLAM 2 MG/2 ML VIAL IVP ONE ×2 (07:30→07:40)
[2024-09-11] MEDS: BENZOCAINE SPRAY 1 EACH MUCOUS MEM ONE (07:30)
[2024-09-11] MEDS: fentaNYL (PF) 50 MCG/ML 2 ML AMP IVP ONE (07:35)
[2024-09-11] MEDS: fentaNYL (PF) 50 MCG/ML 5 ML AMP IVP PRN (07:42)
--- NOTE | 2024-09-11 07:51 | P.TEE ---
Description of Procedure(s): Procedure performed: Transesophageal Echocardiogram with color flow doppler, pulsed wave doppler and continuous wave doppler, moderate conscious sedation Moderate conscious sedation: Moderate conscious sedation was supplied with direct supervision of myself using Versed and Fentanyl. Complications: none Indications: CVA PROCEDURE: After the risks, benefits and alternatives of the above mentioned procedure was explained in detail with the patient, informed consent was obtained. Patient was brought to the lab in a fasting state. Patient was given IV Versed and Fentanyl for sedation. The throat was sprayed with Hurricane to anesthetize the throat. A lubricated Omni probe was then introduced into the esophagus and stomach and multiple views were obtained. 2D echo with color flow doppler, pulsed wave doppler and continuous wave doppler was utilized. Agitated saline bubbles were injected to assess for any intra-atrial shunt. The probe was then removed. Patient tolerated the procedure well. Patient was transferred to the post procedure area in stable and satisfactory condition. FINDINGS: 1. The aortic valve is tricuspid with normal function. 2. The mitral valve appears be normal with mild mitral regurgitation. 3. Tricuspid valve appears to be normal. 4. There is an aneurysmal atrial septum with + PFO. 5. Left atrial appendage is free of clot. 6. Left ventricular ejection fraction 60%.
[2024-09-11 08:59] VITALS: PULSE 70; RESP 16
--- NOTE | 2024-09-11 09:09 | P.PN ---
Subjective Progress Note Date: 09/10/24 Patient was seen for a follow-up. Patient is doing well, offers no complaints. No new focal symptoms. Cardiology has seen the patient as well. Denies headache or dizziness. Objective - Vital Signs Vital signs: Vital Signs Temp 98.2 F 09/10/24 12:00 Pulse 81 09/10/24 12:00 Resp 27 H 09/10/24 13:51 BP 126/70 09/10/24 12:00 Pulse Ox 93 L 09/10/24 12:00 FiO2 Intake & Output 09/09/24 09/10/24 09/10/24 18:59 06:59 18:59 Intake Total 500 550 Output Total 250 153 504 Balance 250 -153 46 Weight 67.2 kg Intake: Oral 500 550 Output: Urine 250 150 500 Stool 3 4 Other: Voiding Method External Catheter External Catheter External Catheter # Voids 0 0 0 # Bowel Movements 1 - Exam Patient's mental status, speech and language functions are normal. Patient has left lower lip droopiness, which patient claims is from previous TIA. Patient does have very mild left upper pronation noted. The strength otherwise is no rmal. Sensations are equal with no neglect. No ataxia for [id number]-[id number] testing. Visual perla are full. - Labs CBC & Chem 7: 09/10/24 03:53 09/10/24 03:53 Labs: Abnormal Lab Results - Last 24 Hours (Table) 09/10/24 09/10/24 09/10/24 Range/Units 03:53 03:53 03:53 MPV 12.9 H (9.5-12.2) fL Immature Plt Fraction 9.5 H (1.1-6.1) % Sodium 135 L (137-145) mmol/L Glucose 108 H (74-99) mg/dL Hemoglobin A1c 6.2 H (<=6.0) % Assessment and Plan Assessment: * Acute ischemic stroke, manifesting with left-sided deficits, slurred speech. Patient is status post TNK. Her current NIH stroke scale is 0. * Hypertension * Hyperlipidemia * Previous history of CVA, with no residual deficits. * PFO noted on 2-D echo. * X tobacco use Plan: * MRI of the brain without contrast, revealed acute/subacute ischemia with few foci of restricted diffusion within the right frontal and parietal lobe gracia- white matter junction interface. Small region of encephalomalacia with gliosis within the right frontal and parietal lobes from prior ischemic injury. Nonspecific mild white matter changes, likely related to small vessel ischemic disease. Right parietal extra-axial calcified lesion corresponding to prior CT, favored to represent a calcified meningioma. No mass effect. I personally reviewed MRI agree with the findings. There are 4 different small areas of acute ischemic infarction, all in the right MCA vascular territory. * 2-D echo revealed LV EF 60%. No obvious regional wall motion abnormalities. Positive agitated saline bubble study for [id number] shunt. Mildly increased left atrial volume. Mild to moderate TR. * Cardiology input appreciated. Patient undergoing MARIE in the morning. May need PFO closure. * CTA head and neck showed: No evidence of acute dissection or flow-limiting stenosis of the cervical internal carotid arteries and cervical vertebral arteries. No evidence of intracranial high-grade stenosis, occlusion or intracranial or aneurysm. * Fasting a.m. lipid panel cholesterol 132, LDL 65, HDL 42, triglycerides 121. Continue Crestor 40 mg daily (home dose) * Hemoglobin A1c 6.2 * Optimize control of blood pressure. * Patient used to take aspirin 325 mg tablet, twice a week, prior to arrival. Patient started on Plavix 75 mg and aspirin 81 mg daily. * Neuro checks every 4 hours. * Telemetry monitoring rule out any arrhythmia * PT, OT, speech therapy * DVT prophylaxis: Lovenox 40 mg subcu daily.
[2024-09-11] MEDS: ASPIRIN 81 MG PO SCH (10:11)
--- NOTE | 2024-09-11 10:25 | P.PN ---
Subjective Progress Note Date: 09/11/24 Principal diagnosis: Stroke. Patient is a 79-year-old female with past medical history significant for previous CVA/TIA, hypertension, hyperlipidemia, recent mechanical fall resulting in left tibial fracture. Brought into the emergency department by EMS with strokelike symptoms last night. Last known well 1814. She was up using the restroom and noted significant left upper and lower extremity weakness. Associated dysarthria. Her immediately called EMS. Code stroke was initiated. NIH was scored at [address] without contrast did not show any acute intracranial hemorrhage or mass effect. There was a calcified extra-axial mass in the region of the right parietal lobe measuring 1.8 cm, felt to most likely representing meningioma. Patchy periventricular and subcortical white matter hypoattenuation likely reflecting chronic microvascular ischemic disease. Brain CT angiogram of the head and neck did not show any evidence of dissection or cervical internal carotid artery stenosis or vertebral artery stenosis. No evidence of high-grade intracranial stenosis, occlusion, or aneurysm. A decision was made between the ER provider and on-call neuro interventionalist to administer tenecteplase. This was given at 1945. Patient is currently being evaluated in the intensive care unit following TNK administration. She is awake and alert. Previous deficits have resolved. States she has history of CVA/TIA approximately 25 years ago. She was told she had a blood clot in her heart. Not currently on any anticoagulation. She does take a daily aspirin. Currently, denies any headaches, vision changes. No notable dysphasia or dysarthria. Previous left-sided weakness has resolved, she does have a left lower extremity soft leg brace. Reportedly sustained a left tibial fracture following a mechanical fall approximately 2 weeks ago. C ontinues to have some left lower extremity pain. Gait assessment was deferred. No ataxia. Denies any head trauma. Denies any chest pain, heart palpitations, syncopal events. CBC: WBC count 9.6, hemoglobin 13.5, platelets 178. Coagulation profile including PT of 10.9, INR 1, APTT 22. CMP with a sodium of 137, potassium 4.3, chloride 106, serum bicarb 21, BUN 16, creatinine 0.65, glucose 115. LFTs not elevated. Troponin less than 0.012. Previous EKG: Sinus rhythm, rate 85 bpm, with nonspecific ST and T wave segment abnormalities. Current most recent vital signs: Temperature 98.9 F, heart rate 78 bpm, blood pressure 145/62 mmHg, nontachypneic, SPO2 recorded at 95% on room air. Progress note dated September 10, 2024. The patient is seen today in room 259. She was seen in consultation yesterday. She came to the emergency department, with weakness and facial droop. CT scanning of the brain, did not show hemorrhage. Likewise, the angiography CT, was negative. The patient received TNK. Currently, the patient is doing well in the intensive care unit. She is on room air. No IV fluids. She could be transferred to the 3 S. floor. Current laboratory data is include a white count of 7.2, hemoglobin 12.2, hematocrit 37.6, and platelet count 170,000. Sodium 135, potassium 4.3, chlorides 103, CO2 27, BUN 17, creatinine 0.92. Glucose is 108. Calcium 9.5. Repeat brain CT from yesterday, shows no acute intracranial process, and no evidence of hemorrhage. Progress note dated September 11, 2024. 79-year-old female again seen in room 259. She was initially admitted with a di agnosis of CVA, received tenecteplase. The patient is resting comfortably in the intensive care unit. The patient is currently on room air. She is not requiring any IV fluid supplementation, although she is getting saline at 20 cc an hour. The patient is scheduled to have a transesophageal echocardiogram this morning. White count is 7.2, hemoglobin 12.2, hematocrit 37.6, platelet count of 170,000. Sodium 135, potassium 4.3, chlorides 103, CO2 27, anion gap 5, BUN 17, creatinine 0.92. Glucose is 131. Lower extremity venous Doppler studies were negative. Objective - Vital Signs Vital signs: Vital Signs Temp 98.2 F 09/11/24 08:00 Pulse 70 09/11/24 08:00 Resp 16 09/11/24 08:00 BP 113/51 09/11/24 08:00 Pulse Ox 93 L 09/11/24 08:00 FiO2 Intake & Output 09/10/24 09/11/24 09/11/24 18:59 06:59 18:59 Intake Total 550 500 250 Output Total 504 450 Balance 46 50 250 Weight 64.7 kg Intake: IV 250 Oral 550 500 Output: Urine 500 450 Stool 4 Other: Voiding Method External Catheter External Catheter External Catheter # Voids 0 # Bowel Movements 1 - Exam No acute distress, oriented 3. HEENT examination is grossly unremarkable. Mucous membranes are moist. No oral lesions. Neck supple. Full range of motion. No adenopathy thyromegaly or neck vein distention. Cardiovascular examination reveals regular rhythm rate. S1-S2 normal. No S3 or S4. No discernible murmur noted. Lungs reveal clear breath sounds. Breath sounds are equal bilaterally. No adventitious lung sounds including wheezes rhonchi or crackles. Abdomen soft bowel sounds are heard. No masses or tenderness. Extremities are intact. No cyanosis clubbing or edema. Skin is without rash or lesion. Neurologic examination is brief but nonfocal. All neurologic deficits have resolved - Labs CBC & Chem 7: 09/10/24 03:53 09/10/24 03:53 Labs: Abnormal Lab Results - Last 24 Hours (Table) 09/10/24 Range/Units 03:53 Hemoglobin A1c 6.2 H (<=6.0) % Assessment and Plan Assessment: Acute ischemic CVA, status post TNK, with resolution of previously noted deficits. Left-sided hemiparesis, resolved. Dysarthria, resolved. Previous history of CVA/TIA. Hypertension. History of hyperlipidemia. History of hypothyroidism. History of mechanical fall and tibial fracture. Plan: Plan dated September 10, 2024. The patient is being seen today in the intensive care unit, room 259. All of her neurologic deficits have resolved. Clinically, the patient is doing well. She has no specific complaints. The patient is on room air. She is not receiving any IV fluids. The patient is a candidate to be transferred out to the stepdown unit. The repeat CT scan done yesterday, shows no acute abnormalities, and certainly no hemorrhage. We will continue to follow. Prognosis is guarded. Dictation was produced using [employer] dictation software. Please excuse any grammatical, word or spelling errors. Plan dated September 11, 2024. The patient apparently is doing very well. She is on room air. She is getting saline at 20 cc an hour. She is scheduled to have a transesophageal echocardiogram this morning. She is not having any neurologic complaints whatsoever. The patient labs, x-rays, and medications are reviewed. We will continue to follow. The patient could likely be transferred out of the intensive care unit, later today. Prognosis is guarded. Dictation was produced using [employer] dictation software. Please excuse any grammatical, word or spelling errors. Time with Patient: Less than 30
[2024-09-11 13:38] VITALS: BP 144/63
--- NOTE | 2024-09-11 14:38 | P.PN ---
Subjective HISTORY OF PRESENTING ILLNESS This is a pleasant 79-year-old with past medical history significant for CVA/TIA, hypertension, hyperlipidemia, recent tibial fracture who presents secondary to strokelike symptoms. Patient was using the restroom and then noted left upper and lower extremity weakness with some dysarthria. Patient came to hospital and NIH score of [address] showing no acute hemorrhage and therefore was given tPA. Patient was transferred to ICU for further monitoring. She does have a history of a stroke/TIA approximately 25 years ago. CTA head and neck showed no high-grade stenosis. She had a mechanical fall approximately 2 weeks ago and had a tibial fracture. Blood work shows white blood cell count 9.6, hemoglobin 13.5, platelets 178. Creatinine 0.6. Troponin less than 0.012. Echocardiogram performed which shows mild to moderate tricuspid regurgitation with positive bubble study. EKG shows sinus rhythm with nonspecific minimal T wave inversions ST depressions in the inferior leads. 09/11 Patient seen and examined. Denies any chest pain or pressure. No significant events overnight. Underwent MARIE this morning which showed preserved EF and aneurysmal atrial septum with PFO. PHYSICAL EXAMINATION Vital signs reviewed. CONSTITUTIONAL: No apparent distress. HEENT: Head is normocephalic. Pupils are equal, round. Sclerae anicteric. Mucous membranes of the mouth are moist. No JVD. No carotid bruit. CHEST EXAMINATION: Lungs are clear to auscultation. No chest wall tenderness is noted on palpation or with deep breathing. HEART EXAMINATION: Regular rate and rhythm. S1, S2 heard. No murmurs, gallops or rub. ABDOMEN: Soft, nontender. Positive bowel sounds. EXTREMITIES: 2+ peripheral pulses, no lower extremity edema and no calf tenderness. NEUROLOGIC EXAMINATION: Patient is awake, alert and oriented x3. ASSESSMENT CVA status post TNK History of prior CVA/TIA approximately 25 years ago Hypertension PFO with aneurysmal atrial septum Hyperlipidemia Mild to moderate tricuspid regurgitation PLAN Stroke likely related to PFO and recommended closing. Some difficulty evaluating peroneal veins. No other workup as an inpatient. Follow-up with patient in the next 1 to 2 weeks and closure of PFO. Objective - Vital Signs Vital signs: Vital Signs Temp 98.2 F 09/11/24 12:00 Pulse 70 09/11/24 08:00 Resp 16 09/11/24 12:00 BP 144/63 09/11/24 12:00 Pulse Ox 98 09/11/24 12:00 FiO2 Intake & Output 09/10/24 09/11/24 09/11/24 18:59 06:59 18:59 Intake Total 550 500 770 Output Total 504 450 Balance 46 50 770 Weight 64.7 kg Intake: IV 250 Oral 550 500 520 Output: Urine 500 450 Stool 4 Other: Voiding Method External Catheter External Catheter External Catheter # Voids 0 # Bowel Movements 1 - Labs CBC & Chem 7: 09/10/24 03:53 09/10/24 03:53
--- NOTE | 2024-09-11 18:17 | P.DS ---
Providers Date of admission: 09/08/24 21:32 Expected date of discharge: 09/11/24 Attending physician: Heriberto Smith Consults: 09/08/24 21:30 Consult Physician Stat Consulting Provider: Sebastien Resendiz Consult Reason/Comments: cva s/p tnk Do you want consulting provider notified?: Already Contacted Consult Physician Urgent Consulting Provider: Alex Figueroa Consult Reason/Comments: left sided weakness, cva s/p tnk Do you want consulting provider notified?: Yes 09/10/24 07:11 Consult Physician Routine Consulting Provider: Keven Pennington Consult Reason/Comments: Stroke TIA, PFO on ECHO Do you want consulting provider notified?: Yes Primary care physician: Mercedes Guillory [facility] Course: Chief Complaint: Left arm weakness Very pleasant 79-year-old patient, follows with Dr. Zohra Guillory. Chronic medical condition include hyperlipidemia, hypertension, osteoarthritis, chronic back pain with slipped disc. GERD. Patient does use a walker at baseline. 2 weeks ago she took a fall and has a left tibia fracture. Has a brace. Following with the orthopedic in the [place] area. Patient had a CVA, about 25 years ago. Resolved. Around 6:15 PM she went to use the restroom. After that she noted that she had significant weakness of the left arm. Her left leg she is wearing a knee immobilizer because she is on the tibia fracture. She also felt some worsening of weakness in the left leg. Also had some left-sided facial droop and bit of slurred speech. She therefore presented to the ER. At 19: 28 patient was given tenecteplase. Subsequently her symptoms complete resolved. Was admitted to the ICU. This morning her and daughter at the bedside. Feeling well. Eating well. September 10: Doing well. No residual. Patient is nonweightbearing on the left leg. Does use a walker. MRI of the brain: Acute/subacute ischemia with few foci of restricted diffusion within the right frontal and parietal lobe gracia- white junction interface. Also evidence of prior ischemic injury with encephalomalacia. Also calcified meningioma.. Communicated with Dr. Arellano. Cardiology will proceed for a MARIE tomorrow. September 11: MARIE carried out by Dr. Estrada. Found to have PFO. No thrombus. Given history of strokes including previously, discussed with Dr. Figueroa from neurology. Will start the patient on Xarelto. Also discussed with Dr. Estrada. Patient to see him next week for closure of the same. Discussed with the patient. Also baby aspirin. Patient has no residual weakness Discussion and discharge planning more than 35 minutes Social history: Lives with her . Stop smoking about 25 years ago. No alcohol. Physical examination: VITAL SIGNS: 98.2, 70, 16, 144 x 53, 98% room air GENERAL: Comfortable EYES: Pupils equal. Conjunctiva mariposa l. HEENT: External appearance of nose and ears normal, oral cavity grossly normal. NECK: JVD not raised; masses not palpable. HEART: First and second heart sounds are normal; no edema. LUNGS: Respiratory rate normal; clear to auscultation. ABDOMEN: Soft, nontender, liver spleen not palpable, no masses palpable. PSYCH: Alert and oriented x3; mood and affect mariposa l. MUSCULOSKELETAL:No Clubbing/cyanosis;muscles-grossly intact. OA in many joints. Left leg in a brace NEUROLOGICAL: Cranial nerves grossly intact; no facial asymmetry, power and sensation grossly intact. INVESTIGATIONS, reviewed in the clinical context: MARIE: Aneurysmal atrial septum with PFO. No clots. EF 60% MRI brain:Acute/subacute ischemia with few foci of restricted diffusion within the right frontal and parietal lobe gracia-white junction interface. Also evidence of prior ischemic injury with encephalomalacia. Also calcified meningioma.. September 08, 2024: White count 9.6 hemoglobin 13.5 platelets 178 sodium 137 potassium 4.3 BUN 16 creatinine 0.65 LDL 65.5 EKG tracing personally reviewed by me-sinus rhythm. Nonspecific ST-T wave changes. Chest x-ray film personally reviewed by me-possible right basilar atelectasis CT angio head and neck: Unremarkable Assessment plan: - Acute, likely stroke causing left-sided weakness and some left facial drooping. t received tenecteplase. Symptoms resolved.: Possible embolic MRI brain:Acute/subacute ischemia with few foci of restricted diffusion within the right frontal and parietal lobe gracia-white junction interface. Also evidence of prior ischemic injury with encephalomalacia. Also calcified meningioma.. MARIE: Aneurysmal atrial septum with PFO. No clots. Started on Xarelto and aspirin. - Patent foramina well, in the setting of embolic strokes x 2 events Started on Xarelto. Follow-up with Dr. Estrada for closure - Primary osteoarthritis Tylenol as needed - Left tibial fracture secondary to fall about 2 weeks ago. Patient has a brace in place. Being followed by orthopedics in the [place] area - Hypothyroid Levothyroxine 100 mcg a day - Essential hypertension Vasotec 10 mg a day Disposition: Home - Past Medical History Past Medical History: GERD/Reflux, Hyperlipidemia, Hypertension, Osteoarthritis (OA) Additional Past Medical History / Comment(s): + cologuard. Back pain with 2 slipped discs History of Any Multi-Drug Resistant Organisms: None Reported Past Surgical History: Appendectomy, Breast Surgery, Orthopedic Surgery Additional Past Surgical History / Comment(s): L foot surgery for hammertoe, R foot bursa surgery, D&C, breast biopsies. Past Anesthesia/Blood Transfusion Reactions: No Reported Reaction Past Psychological History: No Psychological Hx Reported Additional Psychological History / Comment(s): Resides with spouse. Uses cane. Smoking Status: Former smoker Past Alcohol Use History: None Reported Additional Past Alcohol Use History / Comment(s): Pt quit smoking 25 yrs ago. Past Drug Use History: None Reported Plan - Discharge Summary Discharge Rx Participant: No New Discharge Prescriptions: New Aspirin 81 mg PO DAILY tab Rivaroxaban [Xarelto] 20 mg PO DAILY@1800 #30 tab Continue Solifenacin Succinate 5 mg PO DAILY Rosuvastatin Calcium 40 mg PO HS Levothyroxine Sodium [Levoxyl] 100 mcg PO DAILY Enalapril [Vasotec] 10 mg PO DAILY Multivitamin [Multivitamins Adult Gummies] 1 tab PO DAILY Alendronate Sodium [Fosamax] 70 mg PO SUMMERS Acetaminophen Tab [Tylenol] 500 mg PO Q6HR PRN PRN Reason: Pain HYDROcodone/APAP 5-325MG [[place] 5-325] 1 tab PO Q4-6H PRN PRN Reason: Pain Discontinued Aspirin EC [Ecotrin] 325 mg PO QID PRN PRN Reason: Pain Discharge Medication List Enalapril [Vasotec] 10 mg PO DAILY 09/19/23 [History] Levothyroxine Sodium [Levoxyl] 100 mcg PO DAILY 09/19/23 [History] Multivitamin [Multivitamins Adult Gummies] 1 tab PO DAILY 09/19/23 [History] Rosuvastatin Calcium 40 mg PO HS 09/19/23 [History] Solifenacin Succinate 5 mg PO DAILY 09/19/23 [History] Acetaminophen Tab [Tylenol] 500 mg PO Q6HR PRN 09/08/24 [History] Alendronate Sodium [Fosamax] 70 mg PO SUMMERS 09/08/24 [History] HYDROcodone/APAP 5-325MG [[place] 5-325] 1 tab PO Q4-6H PRN 09/08/24 [History] Aspirin 81 mg PO DAILY tab 09/11/24 [Rx] Rivaroxaban [Xarelto] 20 mg PO DAILY@1800 #30 tab 09/11/24 [Rx] Follow up Appointment(s)/Referral(s): [facility], [NON-STAFF] - 1 Week Faisal Estrada DO [STAFF PHYSICIAN] - 1 Week (Office will call with Appointment date and time.) Mercedes Guillory MD [Primary Care Provider] - 1-2 days (Call during bussiness hours to schedule appointment.) Patient Instructions/Handouts: Ischemic Stroke (DC), Stroke (DC), Patent Foramen Ovale (DC) Discharge Disposition: HOME SELF-CARE
--- NOTE | 2024-09-12 09:53 | P.PN ---
Progress Note - Text Progress Note Date: 09/11/24 Transesophageal echogram showed: 1. The aortic valve is tricuspid with normal function. 2. The mitral valve appears be normal with mild mitral regurgitation. 3. Tricuspid valve appears to be normal. 4. There is an aneurysmal atrial septum with + PFO. 5. Left atrial appendage is free of clot. 6. Left ventricular ejection fraction 60%. Patient has venous Doppler of the lower extremities, which was negative for DVT. Patient clearly has cardioembolic stroke. Discussed with primary physician. Patient has fractured left tibia and currently is in immobilizer. If she gets a DVT, it can lead to CVA from PFO. Patient to be started on Eliquis and aspirin, until patient had undergone PFO closure. After the PFO closure, anticoagulant can be stopped.
== END 2024-09-11 14:45 | disposition home health service (06) | DRG 62 ==
LOC: EC 18:55 → 2SICU 21:32
PROVIDERS: ADMIT Hospitalist; ATTEND Hospitalist
PROC: 3E03317 Introduction of Other Thrombolytic into Peripheral Vein, Percutaneous Approach (ICD-10-PCS; principal; 2024-09-08)
PROC: B246ZZ4 Ultrasonography of Right and Left Heart, Transesophageal (ICD-10-PCS; 2024-09-11)
DX: I63.412 Cerebral infarction due to embolism of left middle cerebral artery (principal); G81.94 Hemiplegia, unspecified affecting left nondominant side; G93.89 Other specified disorders of brain; E03.9 Hypothyroidism, unspecified; I10 Essential (primary) hypertension; I07.1 Rheumatic tricuspid insufficiency; Q21.12 Patent foramen ovale; D32.0 Benign neoplasm of cerebral meninges; R47.1 Dysarthria and anarthria; H53.8 Other visual disturbances; R90.82 White matter disease, unspecified; R29.706 NIHSS score 6; E78.5 Hyperlipidemia, unspecified; G89.29 Other chronic pain; M54.9 Dorsalgia, unspecified; M19.91 Primary osteoarthritis, unspecified site; S82.202D Unspecified fracture of shaft of left tibia, subsequent encounter for closed fracture with routine healing; Z79.890 Hormone replacement therapy; Z79.82 Long term (current) use of aspirin; Z79.83 Long term (current) use of bisphosphonates; Z79.899 Other long term (current) drug therapy; Z86.73 Personal history of transient ischemic attack (TIA), and cerebral infarction without residual deficits; Z87.891 Personal history of nicotine dependence; Z88.2 Allergy status to sulfonamides
CPT/HCPCS: 36415; 70450; 70496; 70498; 70551; 71046; 80048; 80053; 80061; 82550; 83036; 84484; 85025; 85610; 85730; 93005; 93306; 93312; 93320; 93325; 93970; 96374; 99291

== ENCOUNTER 2024-10-05 06:12 | Day surgery (SDC) | payer MEDICARE ==
[~2024-10-05 06:12] MED LIST changes: +ALPRAZolam 0.25 MG TAB PO PRN; +ALPRAZolam 0.5 MG TAB PO PRN; +HEPARIN SODIUM,PORCINE (1 ML) 2,500 UNIT in SODIUM CHLORIDE 0.9% 250 ML IRRIGATION PRN; +HEPARIN SODIUM,PORCINE 10,000 UNIT in SODIUM CHLORIDE 0.9% 1,000 ML IRRIGATION PRN; -LIDOCAINE 1% (10MG/ML) FOR IV START INTRADERMA PRN; +NITROGLYCERIN SL TABS 0.4 MG TAB SUBLINGUAL PRN; -PROPOFOL 10 MG/ML 20 ML VIAL IV ONE
[2024-10-05] MEDS: IV FLUID CONTINUATION 1,000 ML IV ONE (06:45)
[2024-10-05] MEDS: SODIUM CHLORIDE 0.9% 1,000 ML in EMPTY BAG 1 BAG IV SCH (07:19)
[2024-10-05] MEDS: ceFAZolin 2 GM in DEXTROSE 5% IN WATER 50 ML IVPB STA (07:30)
[2024-10-05] MEDS: fentaNYL (PF) 50 MCG/ML 2 ML AMP IVP ONE (07:33)
[2024-10-05] MEDS: MIDAZOLAM 2 MG/2 ML VIAL IVP ONE (07:35)
[2024-10-05] MEDS: LIDOCAINE 1% INJ 10MG/ML (20 ML MDV) SQ ONE (07:35)
[2024-10-05] MEDS: ASPIRIN 81 MG PO ONE (07:47)
[2024-10-05] MEDS: CLOPIDOGREL 75 MG TAB PO ONE (08:20)
[2024-10-05] MEDS ORDERED: HYDROcodone/APAP 5-325MG 1 EACH TAB PO PRN (08:24)
[2024-10-05] MEDS ORDERED: ACETAMINOPHEN TAB 500 MG TAB PO PRN (08:24)
--- NOTE | 2024-10-05 08:35 | P.PCN ---
Description of Procedure: TRANSCATHETER CLOSURE OF INTERATRIAL COMMUNICATION PROCEDURES PERFORMED: 1. Closure of interatrial communication via a right femoral venous percutaneous approach using a 25mm Amplatzer Occluder device. 2. Intracardiac echocardiography using an 8-Uzbek AcuNav ultrasound catheter 3. Right femoral venous access under direct U/S visualization x 2 OPERATORS: 1. Faisal Estrada DO interventional cardiology INDICATIONS: History of thromboembolic CVA/[]Right sided cardiac chamber enlargment. Interatrial communication[]/ASD with color flow across inter-atrial septum and positive bubble study by MARIE. SEDATION: Under my direct supervision the patient was administered moderate conscious sedation with Versed and Fentanyl for a total of 45 minutes. PRPOCEDURE SUMMARY: Prior to sedation, the risks, benefits and alternatives of the procedure were discussed with the patient in detail and all questions were answered to the patient’s satisfaction. Both verbal and written consents were obtained. The patient was transported to the cardiac catheterization suite and prepped and draped in the usual sterile fashion for access to the right groin. The patient received conscious sedation in the form of Versed and Fentanyl intravenously. 2% lidocaine was infused into the right groin for local anesthesia. Then, under direct ultrasound visualization, right femoral vein was accessed using micropuncture technique and two 8-Uzbek 11 cm sheaths were placed into the right femoral vein. The 8-Uzbek AcuNav ICE ultrasound catheter was then advanced through into the right atrium where intracardiac echocardiography was performed. PRE PROCEDURE ULTRASOUND: This demonstrated no evidence of pericardial effusion. It demonstrated normal appearing aortic and mitral valves. Overall the left ventricular function and chamber size appeared within normal limits. The LV function appeared preserved with no significant wall motion abnormalities. There was color flow visualized across the inter-atrial septum with ICE with aneurysmal septum. The tricuspid valve appeared normal and the RV appeared normal in size. The visualized portions of the left atrium and left atrial appendage demonstrated no significant abnormalities. After images were obtained with the ICE catheter, a 6-Uzbek multipurpose catheter was inserted into the RFV and was used to cross the septum into the left atrium. Heparin was given. The catheter was then advanced into the LA and placed in the L superior pulmonary vein. A 0.035 260 cm Espinoza wire was then advanced via the catheter and placed in the vein. The catheter was then removed and the 8-Uzbek sheath was also removed over the Amplatzer wire. This was exchanged for a 9Fr Uzbek 77-shergp-jtux delivery sheath with introducer. This was advanced to the septal defect where the sheath was then advanced across the defect over the Amplatzer wire. The introducer was removed and blood was drawn. The Amplatzer wire was then removed. A 25 mm Amplatzer PFO occluder device was then opened, prepped and then loaded into the sheath. Under fluoroscopy and ultrasound guidance, the Amplatzer occluder was advanced through the edge of the sheath. The left atrial side was deployed and was pulled back to the interatrial septum and the right atrial side was deployed. With the device still captured, intracardiac echocardiography was performed demonstrating good capture on all 6 rims with no impingement on valvular function. The delivery system was then released and removed. The final intracardiac echocardiographic images were again once obtained. POST DELIVERY INTRACARDIAC ECHOCARDIOGRAPHIC IMAGES: This demonstrated again no evidence of pericardial effusion. All 6 rims were visualized and demonstrated adequate purchase and the device in stable position. There was no further evidence of interatrial communication by color flow Doppler. The aortic and mitral valves appeared to be functioning appropriately with no impingement of flow. Again overall the left ventricular function appeared within normal limits and again, no effusion was noted. At this point, 8-Uzbek ICE catheter and the torque-view sheath was removed A Z stitch was placed to achieve hemostasis. The patient was transferred to the CVSU in stable condition. COMPLICATIONS: None. FINAL IMPRESSIONS: Successful closure of a PFO with a 25 mm Amplatzer PFO occluder device. No evidence of complication, arrhythmia or other noted. RECOMMENDATIONS: A limited transthoracic echocardiogram will be obtained in the morning. The patient will be transferred to the floor, monitoring overnight. Will plan for discharge in the morning. Aspirin daily, Plavix 75 mg daily, followup in the clinic in approximately 1 week as previously scheduled. Antibiotic prophylaxis for any procedure for one year.
[2024-10-05] MEDS: SODIUM CHLORIDE 0.9% 1,000 ML IV SCH (08:45)
[2024-10-05] MEDS: ASPIRIN 325 MG TAB PO ONE (09:19)
[2024-10-05] MEDS: MULTIVITAMINS, THERA 1 EACH TAB PO SCH (09:22)
[2024-10-05] MEDS: LEVOTHYROXINE 100 MCG TAB PO SCH (09:22)
[2024-10-05 15:08] VITALS: RESP 16
[2024-10-05 18:21] LABS: Basophils # (A) 0.02 10*3/uL (0.00-0.10); Basophils % (A) 0.2 %; Eosinophils # (A) 0.13 10*3/uL (0.04-0.35); Eosinophils % (A) 1.5 %; HGB 13.5 g/dL (12.0-15.0); Immature Platelet Fraction 11.8 % (1.1-6.1); Lymphocytes # (A) 0.97 10*3/uL (0.90-5.00); MCH 29.3 pg (27.0-32.0); MCHC 32.9 g/dL (32.0-37.0); MCV 89.1 fL (80.0-97.0); Mean Platelet Volume 13.2 fL (9.5-12.2); Monocytes # (A) 0.59 10*3/uL (0.20-1.00); Monocytes % (A) 6.7 %; Neutrophils # (A) 7.08 10*3/uL (1.80-7.70); Neutrophils % (A) 80.4 %; Platelet Count 134 10*3/uL (140-440); RDW 13.5 % (11.5-14.5); WBC 8.81 10*3/uL (4.50-10.00)
[2024-10-05 18:37] LABS: African American GFR (CKD) >90 (>60 ml/min/1.73 sqM); Anion Gap 9 mmol/L; Blood Urea Nitrogen 13 mg/dL (7-17); Calcium 9.2 mg/dL (8.4-10.2); Carbon Dioxide 20 mmol/L (22-30); Chloride 109 mmol/L (98-107); Glucose 119 mg/dL (74-99); Non-African American GFR(CKD) 87 (>60 ml/min/1.73 sqM); Potassium 3.7 mmol/L (3.5-5.1); Sodium 138 mmol/L (137-145)
[2024-10-05] MEDS: ATORVASTATIN 80 MG TAB PO SCH (20:09)
--- NOTE | 2024-10-06 08:22 | XR ---
EXAMINATION TYPE: XR chest 2V DATE OF EXAM: 10/06/2024 7:59 AM COMPARISON: 09/08/2024 CLINICAL INDICATION: Female, 79 years old with history of ASD/PFO placement, , TECHNIQUE: AP and lateral views FINDINGS: Heart normal size. PFO occluder device. Atherosclerotic arch calcifications. Mild hyperinflation. Res olution of the previous patchy posterior basilar opacity seen on 09/08/2024. No consolidation or pleur al effusion seen. Some high density nodularity at the right midlung is unchanged. IMPRESSION: Interval clearance of previous basilar opacity seen on the prior lateral view. No acute process seen. [facility], Workstation: [facility], 10/06/2024 8:19 AM
[2024-10-06] MEDS: TROSPIUM CHLORIDE 20 MG TABLET PO SCH (09:25)
[2024-10-06] MEDS: CLOPIDOGREL 75 MG TAB PO SCH (09:26)
[2024-10-06] MEDS: lisinopriL 20 MG TAB PO SCH (09:26)
[2024-10-06] MEDS: ASPIRIN 81 MG PO SCH (09:26)
--- NOTE | 2024-10-06 10:18 | CA ---
Transthoracic Echo Report Name: Neela Matthews Age: 79 Gender: F : 1945 Exam Date: 10/06/2024 08:08 Exam Location: [facility] Ht (in): 63 Wt (lb): 147 Ordering Physician: Faisal Estrada DO ([id number]) Attending/Referring Phys: Executive Meeting Manager Manuel Davis RDCS Procedure CPT: Indications: Post ASD/PFO Insertion Cardiac Hx: Technical Quality: Good Contrast 1: Total Dose (mL): Contrast 2: Total Dose (mL): MEASUREMENTS (Male / Female) Normal Values 2D ECHO LV Diastolic Diameter PLAX 4.4 cm 4.2 - 5.9 / 3.9 - 5.3 cm LV Systolic Diameter PLAX 3.1 cm IVS Diastolic Thickness 1.0 cm 0.6 - 1.0 / 0.6 - 0.9 cm LVPW Diastolic Thickness 1.0 cm 0.6 - 1.0 / 0.6 - 0.9 cm LV Relative Wall Thickness 0.4 RV Internal Dim ED PLAX 2.9 cm LVOT Diameter 1.7 cm LA Systolic Diameter LX 3.2 cm 3.0 - 4.0 / 2.7 - 3.8 cm LV Diastolic Volume MOD BP 71.1 cm??? 67 - 155 / 56 - 104 cm??? LV Systolic Volume MOD BP 21.2 cm??? 22 - 58 / 19 - 49 cm??? LV Ejection Fraction MOD BP 70.1 % >= 55 % LV Cardiac Index MOD BP 2211.3 cm???/min???m??? LV Diastolic Volume MOD 4C 68.9 cm??? LV Systolic Volume MOD 4C 22.8 cm??? LV Ejection Fraction MOD 4C 66.9 % LV Cardiac Index MOD 4C 2044.1 cm???/min???m??? LV Diastolic Length 4C 7.2 cm LV Systolic Length 4C 5.6 cm LV Diastolic Volume MOD 2C 72.0 cm??? LV Systolic Volume MOD 2C 19.7 cm??? LV Ejection Fraction MOD 2C 72.6 % LV Cardiac Index MOD 2C 2318.3 cm???/min???m??? LV Diastolic Length 2C 7.1 cm LV Systolic Length 2C 5.6 cm LA Volume 75.8 cm??? 18 - 58 / 22 - 52 cm??? LA Volume Index 43.7 cm???/m??? 16 - 28 cm???/m??? DOPPLER MV Area PHT 3.4 cm??? Mitral E Point Velocity 84.4 cm/s Mitral A Point Velocity 104.4 cm/s Mitral E to A Ratio 0.8 MV Deceleration Time 223.7 ms TR Peak Velocity 255.7 cm/s TR Peak Gradient 26.2 mmHg Right Atrial Pressure 5.0 mmHg Pulmonary Artery Systolic Pressu 31.2 mmHg Right Ventricular Systolic Press 31.2 mmHg FINDINGS Left Ventricle Left ventricular ejection fraction is estimated at 60 %. Mildly increased septal wall thickness. Left ventricular cavity size normal. No obvious regional wall motion abnormalities. Normal left ventricular wall motion. Right Ventricle Normal right ventricular size and function. Right ventricular systolic pressure within normal limits. Right Atrium Normal right atrial size. Left Atrium Mildly increased left atrial area. Mitral Valve Mitral annular calcification. No mitral stenosis. Trace mitral regurgitation. Aortic Valve Trileaflet aortic valve. Aortic valve sclerosis. No aortic stenosis. No aortic regurgitation. Tricuspid Valve Structurally normal tricuspid valve. No tricuspid stenosis. Mild tricuspid regurgitation. Pulmonic Valve Pulmonic valve not well visualized. No pulmonic stenosis. Trace pulmonic regurgitation. Pericardium No pericardial effusion. Aorta Normal size aortic root and proximal ascending aorta. CONCLUSIONS Normal LV size with mild concentric LVH preserved contractility. Minimal mitral and tricuspid regurgitation. No pulmonary hypertension. No pericardial effusion Previewed by: Dr. Sima Odonnell MD (Electronically Signed) Final Date: 06 Oct 2024 10:18
[2024-10-06 10:33] VITALS: BP 150/79; PULSE 73; TEMP 98.3
--- NOTE | 2024-10-06 13:36 | P.DS ---
Providers Attending physician: Faisal Estrada DO Primary care physician: Mercedes Guillory [facility] Course: Patient is a pleasant 79-year-old female with history of stroke status post tPA who was found to have PFO with aneurysmal septum. There was some concern of possible paradoxical emboli with recent lower extremity injury and immobilization and therefore had been placed on anticoagulation after hospitalization. Patient presented for elective PFO closure and underwent successful PFO closure 10/05/2024 with a Amplatzer 25 mm PFO occluder. Patient was monitored overnight and repeat echo showed no significant effusion and normal positioning of the PFO occluder. Patient will be on aspirin and Plavix going home and the anticoagulation with Xarelto will be discontinued. Follow-up in the office in 1 to 2 weeks. Plan - Discharge Summary Discharge Rx Participant: No New Discharge Prescriptions: New Clopidogrel [Plavix] 75 mg PO DAILY #90 tab Continue Aspirin 81 mg PO DAILY tab Discontinued Rivaroxaban [Xarelto] 20 mg PO DAILY@1800 #30 tab No Action Solifenacin Succinate 5 mg PO DAILY Rosuvastatin Calcium 40 mg PO HS Levothyroxine Sodium [Levoxyl] 100 mcg PO DAILY Enalapril [Vasotec] 10 mg PO DAILY Multivitamin [Multivitamins Adult Gummies] 1 tab PO DAILY Alendronate Sodium [Fosamax] 70 mg PO SUMMERS Acetaminophen Tab [Tylenol] 500 mg PO Q6HR PRN PRN Reason: Pain HYDROcodone/APAP 5-325MG [[place] 5-325] 1 tab PO Q4-6H PRN PRN Reason: Pain Discharge Medication List Enalapril [Vasotec] 10 mg PO DAILY 09/19/23 [History] Levothyroxine Sodium [Levoxyl] 100 mcg PO DAILY 09/19/23 [History] Multivitamin [Multivitamins Adult Gummies] 1 tab PO DAILY 09/19/23 [History] Rosuvastatin Calcium 40 mg PO HS 09/19/23 [History] Solifenacin Succinate 5 mg PO DAILY 09/19/23 [History] Acetaminophen Tab [Tylenol] 500 mg PO Q6HR PRN 09/08/24 [History] Alendronate Sodium [Fosamax] 70 mg PO SUMMERS 09/08/24 [History] HYDROcodone/APAP 5-325MG [[place] 5-325] 1 tab PO Q4-6H PRN 09/08/24 [History] Aspirin 81 mg PO DAILY tab 09/11/24 [Rx] Clopidogrel [Plavix] 75 mg PO DAILY #90 tab 10/06/24 [Rx] Follow up Appointment(s)/Referral(s): Faisal Estrada DO [STAFF PHYSICIAN] - 10/13/24 8:45 am (you will see COPIER FIELD SERVICE TECHNICIAN Mona in the office. ) Patient Instructions/Handouts: Patent Foramen [place] (DC) Discharge Disposition: HOME SELF-CARE
[2024-10-06] MEDS ORDERED: RIVAROXABAN 20 MG TAB PO SCH (18:00)
[2024-10-11] MEDS ORDERED: NON FORMULARY DRUG (Alendronate Sodium [Fosamax] 70 MG Tablet) PO SCH (08:24)
== END 2024-10-06 11:27 | disposition home or self-care (01) ==
LOC: CATHCVL 06:12 → 3SCARD 08:20 → CATHCVL 10-06 11:27
PROVIDERS: ATTEND Internal Medicine
DX: I08.1 Rheumatic disorders of both mitral and tricuspid valves (principal); I73.9 Peripheral vascular disease, unspecified; I10 Essential (primary) hypertension; E78.5 Hyperlipidemia, unspecified; Q21.12 Patent foramen ovale; Z72.0 Tobacco use; Z87.74 Personal history of (corrected) congenital malformations of heart and circulatory system; Z86.73 Personal history of transient ischemic attack (TIA), and cerebral infarction without residual deficits; Z88.2 Allergy status to sulfonamides; Z79.82 Long term (current) use of aspirin; Z79.01 Long term (current) use of anticoagulants; Z79.02 Long term (current) use of antithrombotics/antiplatelets; Z79.890 Hormone replacement therapy; Z79.899 Other long term (current) drug therapy
CPT/HCPCS: 99152; 99153; 93306; 93580; 93662; 80048; 85025; 71046; C1769 ×3; C1894 ×2; C1817; C1759; J2250; J0690; J2003; J3010; J1644